=== PATIENT | female | born 1950 | race Caucasian/White ===

== ENCOUNTER 2017-06-05 08:00 | Outpatient (CLI) | payer MEDICARE | END 2017-06-05 08:01 | disposition home or self-care (01) | LOC: BICMAMMO 08:00 | PROVIDERS: ATTEND Family Medicine | DX: Z12.31 Encounter for screening mammogram for malignant neoplasm of breast (principal) | CPT/HCPCS: 77063; G0202; 77067 ==

== ENCOUNTER 2018-06-11 16:23 | Outpatient (CLI) | payer MEDICARE | END 2018-06-11 16:24 | disposition home or self-care (01) | LOC: BICMAMMO 16:23 | PROVIDERS: ATTEND Family Medicine | DX: Z12.31 Encounter for screening mammogram for malignant neoplasm of breast (principal); Z80.3 Family history of malignant neoplasm of breast | CPT/HCPCS: 77063; 77067 ==

== ENCOUNTER 2019-06-22 12:45 | Outpatient (CLI) | payer MEDICARE ==
--- NOTE | 2019-06-22 13:33 | MMO ---
Bilateral MAMMO Bilat Screen DDI+ROSELINE. CLINICAL HISTORY: Patient is 69 years old and is seen for screening. The patient has the following family history of breast cancer: niece, malignant (generic), X2. The patient has no personal history of cancer. The patient has a history of left Excisional Biopsy in 2008 - benign. VIEWS: The views performed were: bilateral craniocaudal with tomosynthesis and bilateral mediolateral oblique with tomosynthesis. FILMS COMPARED: The present examination has been compared to prior imaging studies performed at [facility] on 11/16/2014, 01/02/2016, 06/05/2017 and 06/11/2018. This study has been interpreted with the assistance of computer-aided detection. MAMMOGRAM FINDINGS: There are scattered fibroglandular densities. There are no suspicious masses, suspicious calcifications, or new areas of architectural distortion. IMPRESSION: THERE IS NO MAMMOGRAPHIC EVIDENCE OF MALIGNANCY. A ROUTINE FOLLOW-UP MAMMOGRAM IN 1 YEAR IS RECOMMENDED. THE RESULTS OF THIS EXAM WERE SENT TO THE PATIENT. ACR BI-RADS Category 1 - Negative MAMMOGRAPHY NOTE: 1. A negative mammogram report should not delay a biopsy if a dominant of clinically suspicious mass is present. 2. Approximately 10% to 15% of breast cancers are not detected by mammography. 3. Adenosis and dense breasts may obscure an underlying neoplasm. Reported by: DONNA LIVE MD Electonically Signed: [id number]
== END 2019-06-22 12:46 | disposition home or self-care (01) ==
LOC: BICMAMMO 12:45
PROVIDERS: ATTEND Family Medicine
DX: Z12.31 Encounter for screening mammogram for malignant neoplasm of breast (principal); Z80.3 Family history of malignant neoplasm of breast; Z91.89 Other specified personal risk factors, not elsewhere classified
CPT/HCPCS: 77063; 77067

== ENCOUNTER 2019-08-21 15:01 | Inpatient (IN) | payer MEDICARE ==
[2019-08-21] MEDS ORDERED: Diltiazem 125 MG/25 ML ONE (15:26)
[2019-08-21 15:31] LABS: #Eosinphils 0.1 thou/uL (0.0-0.7); #Lymphocytes 4.8 thou/uL (1.20-3.40); #Monocytes 0.9 thou/uL (0.11-0.59); %Basophils 0.3 % (0.0-1.0); %Eosinophils 0.4 % (0.0-10.0); %Lymphocytes 32.1 % (21.0-51.0); %Monocytes 6.2 % (0.0-10.0); Hemoglobin 13.9 g/dL (12.0-16.0); Mean Corpuscular HGB CONC 32.6 g/dL (32.0-36.0); Mean Corpuscular Hemoglobin 27.6 pg (27.0-31.0); Mean Corpuscular Volume 84.8 fL (78.0-98.0); Mean Platelet Volume 8.4 fL (7.4-10.4); Platelet Count 292 thou/uL (130-400); RBC Distribution Width 13.3 % (11.5-14.5); Red Blood Cell (RBC) Count 5.02 mill/uL (4.20-5.40); White Blood Cell (WBC) Count 14.8 thou/uL (4.8-10.8)
--- NOTE | 2019-08-21 15:38 | RAD ---
Chest one view HISTORY: Cough. Pneumonia. COMPARISON: 09/29/2015. FINDINGS: Cardiac silhouette and pulmonary vasculature are unremarkable. Mediastinum is midline with aortic calcification. No confluent airspace consolidation or evidence of pneumothorax. IMPRESSION: Atherosclerosis. No active cardiopulmonary abnormalities are otherwise demonstrated.
[2019-08-21 15:44] LABS: Prothrombin Time 12.7 SEC (12.0-14.7)
[2019-08-21 15:46] LABS: D-Dimer Test 0.38 *mcg/mL (0.27-0.43)
[2019-08-21 15:58] LABS: ALT (SGPT) 17 U/L (8-55); AST (SGOT) 16 U/L (5-34); Albumin 4.6 g/dL (3.4-4.8); Alkaline Phosphatase 56 U/L (40-110); Anion Gap 16 mmol/L (10-20); BUN (Urea Nitrogen) 24 mg/dL (9.8-20.1); Bilirubin, Total 0.4 mg/dL (0.2-1.2); CK (CPK) 60 U/L (29-168); Calc. Creatinine Clearance 0 mL/min (70-130); Calcium 10.3 mg/dL (7.8-10.44); Carbon Dioxide 24 mmol/L (23-31); Chloride 102 mmol/L (98-107); Estimated GFR-MDRD 67; Globulin 2.8 g/dL (2.4-3.5); Glucose 100 mg/dL (83-110); Potassium 3.5 mmol/L (3.5-5.1); Protein, Total 7.4 g/dL (6.0-8.3); Sodium 138 mmol/L (136-145)
[2019-08-21] MEDS ORDERED: Diltiazem 125 MG in Sodium Chloride 0.9% 100 ML IVPB SCH (16:15)
[2019-08-21 16:20] LABS: CKMB 1.2 ng/mL (0-6.6)
[2019-08-21] MEDS ORDERED: Enoxaparin Sodium 100 MG/ML SYRINGE ONE (17:26)
[2019-08-21] MEDS ORDERED: Aspirin Chewable 81 MG TAB ONE (17:26)
[2019-08-21 18:08] LABS: Bilirubin Negative (Negative); Blood, Urine Trace (Negative); Glucose, Urine (Dipstick) Negative (Negative); Leukocyte Negative (Negative); Nitrite Negative (Negative); Protein, Urine (Dipstick) Negative (Neg-Trace); Urobilinogen 0.2 mg/dL (Less than 2)
[2019-08-21 18:09] LABS: Clarity Clear (Clear)
[2019-08-21 18:10] LABS: Squamous Epithelial 0-3 HPF (0-3)
[2019-08-21 18:11] LABS: Bacteria/HPF 1+ HPF (None Seen)
[2019-08-21] MEDS ORDERED: Acetaminophen 325 MG TAB PO PRN (19:41)
[2019-08-21 19:45] LABS: Troponin I 0.026 ng/mL (< 0.028)
[2019-08-21 20:50] VITALS: BMI 38.6
[2019-08-21 22:56] LABS: Troponin I 0.027 ng/mL (< 0.028)
--- NOTE | 2019-08-22 00:59 | HP ---
CHIEF COMPLAINT: Generalized fatigue and low blood pressure. HISTORY OF PRESENT ILLNESS: This patient is a 69-year-old female, who has no prior cardiac history. She states about 3 weeks ago she started experiencing some dull headaches, which were not too bother some. Then on Saturday 5 days ago, she started feeling some generalized weakness and fatiguing very quickly with minimal exertion. She stated that she could tell when she was lying down that her heart might be a bit abnormal. She was also monitoring her blood pressure with a blood pressure cuff that told her heart rate was getting high and her blood pressure was running down to the 110 range. Therefore, she did not take her blood pressure medicine over the last couple of days. Today, she presented to the Emergency Department where she was found to be in atrial fibrillation with rapid ventricular rate. She denied chest pain, lightheadedness, or palpitations. She has not subjectively felt short of breath, but her daughter felt like she appeared to be a bit more dyspneic on exertion yesterday. REVIEW OF SYSTEMS: Normal sleep, appetite, bowel and bladder habits. She has some chronic knee pain. Otherwise, all systems reviewed, all other systems negative except for those things mentioned in HPI. PAST MEDICAL HISTORY: Hypertension, hyperlipidemia, overactive bladder. PAST SURGICAL HISTORY: x4, hysterectomy, total right knee replacement, cataractectomy. FAMILY HISTORY: Father had heart problems. Mother had atrial fibrillation. SOCIAL HISTORY: The patient quit smoking over 10 years ago. Very rarely drinks alcohol. No drugs. She is . She is full code and her or her son would be her surrogate decision makers should that become necessary. PHYSICAL EXAMINATION: VITAL SIGNS: Blood pressure is 146/71, pulse at the time of my exam was round 110, down to the 90s. Peak in the emergency department was 162, respirations 16, temperature 98.1, O2 saturation 98% on room air. GENERAL APPEARANCE: Morbidly obese age-appropriate female. She is awake, alert, very pleasant, cooperative. HEENT: DAMON. Extraocular lens implants are visible. She has no OP lesions. NECK: Supple and symmetric. HEART: Irregularly irregular without murmurs, tachycardic. LUNGS: Clear to auscultation bilaterally with good chest wall expansion and air exchange. ABDOMEN: Soft, nontender, and nondistended. Positive bowel sounds. No masses. No organomegaly. EXTREMITIES: No cyanosis, clubbing, or edema. Pulses are slightly diminished, but present. PSYCHIATRIC: Normal affect and behavior. NEUROLOGIC: No focal deficits. LABORATORY DATA: White count 14.8, hemoglobin 13.9. INR is 1.0, PT 12.7. D-dimer 0.38. Sodium 138, potassium 3.5, chloride 102, CO2 24, BUN 24, creatinine 0.84, glucose 100, calcium 10.3, mag 2.2. LFTs normal. Troponin 0.032, subsequent 0.026. TSH 1.67. Urinalysis unremarkable. IMAGING: Chest x-ray shows some atherosclerosis, otherwise unremarkable. EKG, atrial fibrillation with RVR at 157 beats per minute. IMPRESSION AND PLAN: 1. Atrial fibrillation with rapid ventricular response. The patient has received diltiazem in the emergency department, started on drip. She is at 15 an hour. Because it is requiring some changes, the patient was admitted to the [facility]. Heart rate seems to be improving somewhat with that. She did receive a dose of Lovenox in the emergency department. We will continue with Lovenox for now just to ensure that she will have some stability and not require SARAH and cardioversion. If she appears stable by tomorrow, may be able to convert over to oral anticoagulant. We will obtain echocardiogram. Consult Cardiology. 2. Hypertension. Continue with her usual home medications. 3. Mild leukocytosis. I do not suspect infectious etiology. Job ID: [id number]
[2019-08-22 03:45] LABS: #Basophils 0.1 thou/uL (0.0-0.2); #Eosinphils 0.1 thou/uL (0.0-0.7); #Lymphocytes 3.9 thou/uL (1.20-3.40); #Monocytes 0.7 thou/uL (0.11-0.59); %Basophils 0.6 % (0.0-1.0); %Lymphocytes 39.8 % (21.0-51.0); %Monocytes 7.3 % (0.0-10.0); %Neutrophils 51.4 % (42.0-75.0); Hemoglobin 12.4 g/dL (12.0-16.0); Mean Corpuscular HGB CONC 32.9 g/dL (32.0-36.0); Mean Corpuscular Volume 85.1 fL (78.0-98.0); Mean Platelet Volume 8.4 fL (7.4-10.4); Platelet Count 240 thou/uL (130-400); RBC Distribution Width 13.3 % (11.5-14.5); Red Blood Cell (RBC) Count 4.41 mill/uL (4.20-5.40); White Blood Cell (WBC) Count 9.8 thou/uL (4.8-10.8)
[2019-08-22 04:04] LABS: Anion Gap 12 mmol/L (10-20); BUN (Urea Nitrogen) 18 mg/dL (9.8-20.1); Calc. Creatinine Clearance 126 mL/min (70-130); Calcium 9.3 mg/dL (7.8-10.44); Carbon Dioxide 24 mmol/L (23-31); Chloride 104 mmol/L (98-107); Estimated GFR-MDRD 85; Glucose 95 mg/dL (83-110); Sodium 137 mmol/L (136-145)
[2019-08-22] MEDS: Enoxaparin Sodium 120 MG/0.8 ML SYRINGE SC SCH ×2 (08:14→20:35)
[2019-08-22] MEDS ORDERED: Potassium Chloride 40 MEQ in Sodium Chloride 0.9% 250 ML 250 ML IVPB SCH (09:00)
[2019-08-22] MEDS: Potassium Chloride 40 MEQ in Sodium Chloride 0.9% 250 ML 250 ML IVPB SCH ×2 (12:05→18:03)
--- NOTE | 2019-08-22 12:46 | PDOC.HOSPP ---
- Subjective Encounter Date: 08/22/19 Encounter Time: 11:30 Subjective: no overnight events. This morning, laying comfortably in bed and has no complaints. Rate better controlled on cardizem drip. - Objective Vital Signs & Weight: Vital Signs (12 hours) Temp Pulse Ox 08/22/19 12:00 98.0 F 08/22/19 08:00 100 08/22/19 07:26 98.7 F 08/22/19 03:48 97.6 F Weight Weight 232 lb 1.6 oz Most Recent Monitor Data Heart Rate from ECG 96 NIBP 144/62 NIBP BP-Mean 89 Respiration from ECG 19 SpO2 96 I&O: 08/21/19 08/22/19 08/23/19 06:59 06:59 06:59 Intake Total 200 Output Total 150 Balance 50 Result Diagrams: 08/22/19 03:20 08/22/19 03:20 Hospitalist ROS - Review of Systems Constitutional: denies: fever, chills, sweats, weakness, malaise, other Respiratory: denies: cough, dry, shortness of breath, hemoptysis, SOB with excertion, pleuritic pain, sputum, wheezing, other Cardiovascular: denies: chest pain, palpitations, orthopnea, paroxysmal noc. dyspnea, edema, light headedness, other Gastrointestinal: denies: nausea, vomiting, abdominal pain, diarrhea, constipation, melena, hematochezia, other Genitourinary: denies: dysuria, frequency, incontinence, hematuria, retention, other - Medication Medications: Active Medications Generic Name Dose Route Start Last Admin Trade Name Freq PRN Reason Stop Dose Admin Enoxaparin Sodium 110 mg 08/22/19 09:00 08/22/19 08:14 Lovenox SC 110 mg 0900,2100 KAMILA Administration Diltiazem HCl 125 mg/ Sodium 125 mls @ 5 mls/hr 08/21/19 16:15 08/22/19 09:41 Chloride IVPB 125 mls INF KAMILA Administration 5 MG/HR Potassium Chloride 40 meq/ 270 mls @ 67.5 mls/hr 08/22/19 13:00 08/22/19 12: 05 Sodium Chloride IVPB 08/22/19 20:59 Not Given Q4HR KAMILA - Exam General Appearance: NAD, awake alert Neck: no JVD Heart: irregular Heart - other findings: HR 90s-100s; on sitting up for lung exam, HR 120s Respiratory: CTAB, no wheezes, no ronchi Respiratory - other findings: mild inspiratory rales b/l lower portillo, breathing and satting well on RA Gastrointestinal: soft, non-tender, non-distended, normal bowel sounds Extremities: no edema Psychiatric: normal affect, normal behavior, A&O x 3 Hosp A/P - Plan #atrial fibrillation w/ RVR -currently asymptomatic, breathing and satting well on RA -HR 100s on 5mg/hr cardizem drip; pending echo and cardiology recommendations -no contraindication to anticoagulation; was on warfarin in the past for short duration s/p total knee replacement; currently on Lovenox, will transition to DOACs pending cardiology recs #hypertension -currently well controlled -will adjust as necessary after patient is transitioned to oral rate control -goal BP <140/90 Full code DVT PPx: on anticoag for afib GI PPx: no indication
--- NOTE | 2019-08-22 13:40 | CON ---
DATE OF CONSULTATION: 08/22/2019 REASON FOR CONSULTATION: Atrial fibrillation. HISTORY OF PRESENT ILLNESS: Ms. Cooper is a very pleasant 69-year-old woman, who recently was in her normal state of health until Saturday when she began feeling weak. No shortness of breath, chest pain, or pressure. She also states she had a heart fluttering at present. No nausea, vomiting, or other associated symptoms. No syncope or presyncope. No previous history of atrial fibrillation. When she was seen and evaluated in the emergency room, she was found to be in AFib with RVR. She was placed on IV Cardizem. She is now resting comfortably. Heart rate continues to be elevated. PAST MEDICAL HISTORY: Hyperlipidemia, hypertension, , hysterectomy, knee replacement, cataract surgery. SOCIAL HISTORY: No current tobacco use. Rare alcohol use. Currently, . REVIEW OF SYSTEMS: A 10-point review of systems is reviewed and as above, otherwise negative. PHYSICAL EXAMINATION: GENERAL: Patient is a pleasant woman, who is in no acute distress. The patient appears her stated age. VITAL SIGNS: Blood pressure 144/62, pulse 80, temperature 96, respirations 20. NEUROLOGIC: The patient is alert and oriented x3 with no focal neurologic deficits. HEENT: Sclerae without icterus. Mouth has moist mucous membranes with normal pallor. NECK: No JVD. Carotid upstroke brisk. No bruits bilaterally. LUNGS: Clear to auscultation with unlabored respirations. BACK: No scoliosis or kyphosis. CARDIAC: Irregularly irregular. ABDOMEN: Soft, nontender, nondistended. No peritoneal signs present. No hepatosplenomegaly. No abnormal striae. EXTREMITIES: 2+ femoral and 2+ dorsalis pedis pulses. No cyanosis, clubbing, or edema. SKIN: No gross abnormalities. LABORATORY DATA: CK and troponin negative. Potassium 3.0, otherwise within normal limits. Hemoglobin was 12.4. IMPRESSION: 1. New-onset atrial fibrillation. 2. Hypokalemia. RECOMMENDATIONS: 1. Supplement IV Cardizem with p.o. Cardizem. 2. Continue Lovenox 1 mg/kg subcutaneous q.12. 3. Add Eliquis 5 mg one p.o. b.i.d. when close to discharge. 4. Review echo. 5. Once the patient's rate is controlled, will be okay from my standpoint to discharge home with close outpatient followup. If she is not able to have a rate control with medical therapy, we then recommend a SARAH with cardioversion. Job ID: [id number]
--- NOTE | 2019-08-22 18:43 | CON ---
DATE OF CONSULTATION: 08/22/2019 HISTORY OF PRESENT ILLNESS: Ino Cooper is a 69-year-old female, who presented last night with complaints of weakness, easy fatigability, and shortness of breath when she moves around. She also had subjective palpitations. She had rapid atrial fibrillation on admission. She says she is feeling 100% better. Her rate is now controlled. PAST MEDICAL HISTORY: Remarkable for hypertension, lipid disorder, four C- sections, hysterectomy, knee replacement, and cataract surgery. FAMILY HISTORY: Positive for vascular disease. Her mom had atrial fibrillation , at 87 years of age, not from the atrial fibrillation. SOCIAL HISTORY: She is a former smoker. She does not drink. REVIEW OF SYSTEMS: Ten-point otherwise is negative. She says she is able to lay flat in bed now without shortness of breath. PHYSICAL EXAMINATION: VITAL SIGNS: She is afebrile, heart rate 102, blood pressure 126/75, and respiratory rates in the 20s. HEENT: Pupils are equal. Sclerae are anicteric. NECK: Supple. No lymphadenopathy. LUNGS: Clear. HEART: Irregular. S1 and S2 are normal. ABDOMEN: Soft and nontender. EXTREMITIES: Without clubbing, cyanosis, or edema. NEURO: Grossly nonfocal. LABORATORY DATA: White count 9.8, hemoglobin 12.4, and platelets 240. Electrolytes are normal except for potassium of 3 and creatinine was 0.68. Coags were normal. Urinalysis is unremarkable. IMPRESSION AND PLAN: Rapid atrial fibrillation with symptoms predominantly related to that. Now, she is rate control. She is feeling much better. Echocardiogram has been done showing normal systolic function. We will follow while she is in intermediate care. She looks stable enough to move out to a telemetry bed. TIME SPENT: A 50-minute consult 50% of the time was spent on the unit coordinating care. Job ID: [id number] [facility]
[2019-08-22] MEDS: diphenhydrAMINE 25 MG CAP PO PRN (20:35)
[2019-08-23 04:56] LABS: Magnesium 2.1 mg/dL (1.6-2.6); Potassium 3.6 mmol/L (3.5-5.1)
[2019-08-23] MEDS: Enoxaparin Sodium 120 MG/0.8 ML SYRINGE SC SCH (07:48)
--- NOTE | 2019-08-23 08:00 | PDOC.CPN ---
- Subjective Date: 08/23/19 Time: 10:28 Interval history: Overall feels better but HR continues to erratic with little exertion - Objective Allergies/Adverse Reactions: Allergies Allergy/AdvReac Type Severity Reaction Status Date / Time No Known Allergies Allergy Unverified 08/21/19 16:03 Visit Medications: Current Medications Acetaminophen (Tylenol) 650 mg PO Q4H PRN PRN Reason: Headache/Fever/Mild Pain (1-3) Diltiazem HCl (Cardizem) 90 mg PO Q8H KAMILA Last Admin: 08/23/19 01:07 Dose: 90 mg Diphenhydramine HCl (Benadryl) 25 mg PO Q4H PRN PRN Reason: Itching Last Admin: 08/22/19 20:35 Dose: 25 mg Enoxaparin Sodium (Lovenox) 110 mg SC 0900,2100 [facility] Last Admin: 08/23/19 07:48 Dose: 110 mg Diltiazem HCl 125 mg/ Sodium (Chloride) 125 mls @ 5 mls/hr IVPB INF KAMILA Stop: 08/23/19 10:00 Last Admin: 08/22/19 09:41 Dose: 125 mls Sodium Chloride (Flush - Normal Saline) 10 ml IVF PRN PRN PRN Reason: Saline Flush Vital Signs & Weight: Vital Signs Temp Pulse Ox 08/23/19 07:21 97.4 F L 08/23/19 04:00 97.8 F 08/23/19 00:00 97.7 F 08/22/19 23:00 97 08/22/19 20:00 99 Weight 232 lb 1.6 oz - Physical Exam General: alert & oriented x3 Neck: no masses, no bruit Cardiac: no murmur, irregularly regular Lungs: normal exam Neuro: grossly intact Abdomen: unremarkable - Labs Result Diagrams: 08/22/19 03:20 08/23/19 03:55 Troponin/CKMB CK-MB (CK-2) 1.2 ng/mL (0-6.6) 08/21/19 15:19 Troponin I 0.027 ng/mL (< 0.028) 08/21/19 22:17 - Assessment/Plan Assessment/Plan: New onset afib On IV CCB, PO CCB Increase PO and DC IV On ACT Echo with normal EF Given difficult with rate control, recommend CV and SARAH Risks of procedure discussed including but not limited to:CVA, failed CV, need for repeat CV, damage to teeth mouth throat and esophagus requiring surgery. Pt agrees to proceed.
[2019-08-23] MEDS: Hydrochlorothiazide 25 MG TAB PO SCH (08:33)
--- NOTE | 2019-08-23 08:39 | PDOC.HOSPP ---
- Subjective Encounter Date: 08/23/19 Encounter Time: 08:00 Subjective: overnight, cardizem drip held and transitioned to PO. HR in 100-110s unless exerts herself, during which 130s. This morning, lying comfortably in bed and has no complaints. - Objective Vital Signs & Weight: Vital Signs (12 hours) Temp Pulse Ox 08/23/19 07:21 97.4 F L 08/23/19 04:00 97.8 F 08/23/19 00:00 97.7 F 08/22/19 23:00 97 Weight Weight 232 lb 1.6 oz Most Recent Monitor Data Heart Rate from ECG 100 NIBP 138/66 NIBP BP-Mean 90 Respiration from ECG 18 SpO2 96 I&O: 08/22/19 08/23/19 08/24/19 06:59 06:59 06:59 Intake Total 200 1470 Output Total 150 125 Balance 50 1345 Result Diagrams: 08/22/19 03:20 08/23/19 03:55 Hospitalist ROS - Review of Systems Constitutional: denies: fever, chills, sweats, weakness, malaise, other Respiratory: denies: cough, dry, shortness of breath, hemoptysis, SOB with excertion, pleuritic pain, sputum, wheezing, other Cardiovascular: denies: chest pain, palpitations, orthopnea, paroxysmal noc. dyspnea, edema, light headedness, other Gastrointestinal: denies: nausea, vomiting, abdominal pain, diarrhea, constipation, melena, hematochezia, other Genitourinary: denies: dysuria, frequency, incontinence, hematuria, retention, other - Medication Medications: Active Medications Generic Name Dose Route Start Last Admin Trade Name Freq PRN Reason Stop Dose Admin Diltiazem HCl 90 mg 08/22/19 18:00 08/23/19 08:33 Cardizem PO 90 mg Q8H KAMILA Administration Diphenhydramine HCl 25 mg 08/22/19 20:24 08/22/19 20:35 Benadryl PO 25 mg Q4H PRN Administration Itching Enoxaparin Sodium 110 mg 08/22/19 09:00 08/23/19 07:48 Lovenox SC 110 mg 0900,2100 KAMILA Administration Hydrochlorothiazide 25 mg 08/23/19 09:00 08/23/19 08:33 Hydrochlorothiazide PO 25 mg DAILY KAMILA Administration Diltiazem HCl 125 mg/ Sodium 125 mls @ 5 mls/hr 08/21/19 16:15 08/22/19 09:41 Chloride IVPB 08/23/19 10:00 125 mls INF KAMILA Administration 5 MG/HR - Exam General Appearance: NAD, awake alert Heart: irregular Heart - other findings: rate in 120s right after bowel movement Respiratory: CTAB, no wheezes, no rales, no ronchi Gastrointestinal: soft, non-tender, non-distended, normal bowel sounds Extremities: no edema Psychiatric: normal affect, normal behavior, A&O x 3 Hosp A/P - Plan #atrial fibrillation w/ RVR -currently asymptomatic, breathing and satting well on RA -HR 100s on cardizem PO; on exertion HR 120s-130s -continue cardizem PO; adjust as per cardiology recs -stopped lovenox, started eliquis 5mg PO bid #hypertension -currently well controlled -continue current management Full code DVT PPx: on anticoag for afib GI PPx: no indication Transfered to Telemetry. Likely DC 08/23
[2019-08-23] MEDS ORDERED: Atorvastatin Calcium 10 MG TAB PO SCH ×2 (09:00→21:00)
[2019-08-23] MEDS: Apixaban 5 MG TAB PO SCH ×2 (09:11→21:13)
[2019-08-23] MEDS ORDERED: Digoxin 0.5 MG/2 ML AMP SLOW IVP SCH (09:45)
[2019-08-23] MEDS: diphenhydrAMINE 25 MG CAP PO PRN (10:29)
[2019-08-23] MEDS: Flecainide 50 MG TAB PO SCH (21:12)
[2019-08-24 04:43] LABS: Potassium 3.4 mmol/L (3.5-5.1)
[2019-08-24] MEDS ORDERED: Potassium Chloride 20 MEQ TAB PO SCH (07:00)
[2019-08-24] MEDS ORDERED: PROPOFOL 20 ML ONE (10:01)
[2019-08-24] MEDS ORDERED: Fentanyl 100 MCG/2 ML VIAL ONE (10:01)
--- NOTE | 2019-08-24 10:53 | OP ---
DATE OF PROCEDURE: 08/24/2019 PREPROCEDURE DIAGNOSIS: Atrial fibrillation. POSTPROCEDURE DIAGNOSIS: Sinus rhythm. PROCEDURE: Synchronized cardioversion. DESCRIPTION OF PROCEDURE: The patient was consented for the procedure. I discussed the procedure in full detail with Ms. Cooper. Risks include, but not limited to the following: Stroke, need for temporary pacemaker, burning of skin, failed cardioversion, or need for repeat cardioversion. All questions were answered. Given the above, the patient agreed to proceed with above procedure. Conscious sedation was performed with propofol. This occurred after the SARAH. Cardioversion performed x1 at 150 joules in a synchronized fashion. IMPRESSION: Successful synchronized cardioversion. Job ID: [id number]
--- NOTE | 2019-08-24 10:54 | OP ---
DATE OF PROCEDURE: 08/24/2019 PREPROCEDURE DIAGNOSIS: Atrial fibrillation. PROCEDURE PERFORMED: Transesophageal echocardiography. DESCRIPTION OF PROCEDURE: The patient was consented for the procedure. I discussed procedure in full detail with Arvind Allison. Risks include, but not limited to the following: Damage to teeth, mouth, back of throat, damage to esophagus, as well as reaction to medication. All questions were answered. Given the above, the patient agreed to proceed with the procedure. Conscious sedation was performed with propofol. The probe passed easily into esophagus. FINDINGS: Left atrial appendage well visualized. No thrombus present. Velocities are greater than 50 cm/second. Overall LVEF estimated at 55%. IMPRESSION: 1. No thrombus present within the left atrial appendage. 2. Velocities greater than 50 cm/sec with the left atrial appendage. 3. LVEF 55%. Job ID: [id number]
[2019-08-24] MEDS: Flecainide 50 MG TAB PO SCH (11:29)
[2019-08-24] MEDS: Apixaban 5 MG TAB PO SCH (11:30)
[2019-08-24] MEDS: Hydrochlorothiazide 25 MG TAB PO SCH (11:31)
[2019-08-24 11:46] VITALS: TEMP 98.2
--- NOTE | 2019-08-25 14:08 | DIS ---
DATE OF ADMISSION: 08/21/2019 DATE OF DISCHARGE: 08/24/2019 HOSPITAL COURSE: Ms. Cooper is a 69-year-old female with medical history of hypertension, who presented for generalized weakness. She was found to be in atrial fibrillation with RVR and attempts to control the rate were unsuccessful. The patient underwent SARAH with cardioversion after which she remained in sinus rhythm. Per Cardiology, the patient was supplemented with anticoagulation, flecainide, diltiazem, losartan, and was continued on atorvastatin and oxybutynin. Metoprolol and hydrochlorothiazide were discontinued. The patient was hemodynamically stable and in sinus rhythm on the day of discharge. PHYSICAL EXAMINATION: VITAL SIGNS: Unremarkable. GENERAL: She was alert and oriented x3. No apparent distress. CARDIAC: Regular rate and rhythm. No gallops or rubs. LUNGS: Clear to auscultation bilaterally. No rales, wheezing, or rhonchi. ABDOMEN: Nondistended and nontender. Normal bowel sounds. EXTREMITIES: Strength is 5/5 throughout upper and lower extremities. PSYCHIATRIC: Proper mood and affect. Alert and oriented x3. ASSESSMENT AND PLAN: 1. Ms. Cooper is a 69-year-old female, who presented with new onset atrial fibrillation with rapid ventricular rate. 2. Medical management to control the rate was unsuccessful, so the patient underwent SARAH with cardioversion after which the patient was in sinus rhythm. The patient's symptoms have resolved and she was ambulating freely with no shortness of breath or presyncope. 3. The patient was started on flecainide, diltiazem, and apixaban per Cardiology recommendations, and losartan. We placed hydrochlorothiazide due to persistent hypokalemia during inpatient stay. 4. The patient was discharged home with followup appointments with her primary care physician, as well as Cardiology. Job ID: [id number]
--- NOTE | 2019-08-25 23:44 | PQF ---
GLORIA POLO RICARDO MD [id number] CLINICAL DOCUMENTATION CLARIFICATION FORM: POST DISCHARGE Addendum to original discharge summary date: ____ Late entry note date: __ DATE: ATTN:JACE KERR MD Please exercise your independent, professional judgment in responding to the clarification form. Clinical indicators are provided on the bottom of this form for your review Please check appropriate box(s): AMI TYPE: [ ] Acute Coronary Syndrome (ACS) without Acute ID meaning Unstable Angina [ ] NSTEMI (ID type I) [ ] NSTEMI due to Demand Ischemia (AMI Type II) [ ] Demand Ischemia without ID [ ] STEMI (please also specify site and arterysee below) If STEMI, SITE:[ ] Anterior [ ] Apical [ ] Lateral [ ] Inferior [ ] Posterior [ ] Q Wave [ ] Septal [ ] Unable to Determine SPECIFIC ARTERY (Based on site) [ ] Left Main Coronary[ ] Diagonal [ ] Left Anterior Descending[ ] Oblique Marginal [ ] Right Coronary Artery[ ] Unable to Determine [ ] Left Circumflex [ ] Other diagnosis [ ] Unable to determine In addition, please specify: Present on Admission (POA): [ ] Yes [ ] No [ ] Unable to determine CLINICAL INDICATORS - SIGNS / SYMPTOMS / LABS Cardiovascular exam included findings of rate tachycardia,rhythm irregularly irregular-Documented in ED on 08/20 by Tim Santos MD 12 lead EKG shows , atrial fibrillation with rapid ventricular response, Rate: 157, ST marked ST abnormality, possible lateral subendocardial injury, Inferior infarct , age undetermined, anterior infarct , age undetermined , no stemi- Documented in ED on 08/20 by Tim Santos MD New onset AFIB-Documented in ED on 08/20 by Tim Santos MD Troponin mildly elevated -Documented in ED on 08/20 by Tim Santos MD Troponin-0.032-Documented in H&P on 08/20 by Sixto Patricio MD r RISKS: HTN-Documented in H&P on 08/20 by Sixto Patricio MD New onset AFIB-Documented in ED on 08/20 by Tim Santos MD TREATMENTS: Patient given ASA-Documented in ED on 08/20 by Tim Santos MD Synchronized cardioversion -Documented in OP note on 08/23 by Jace Kerr MD SARAH-Documented in OP note on 08/23 by Jace Kerr MD Aspirin chewable 81 mg -Documented in Medication snapshot [employer] (This form is maintained as a part of the permanent medical record) 2014 [employer], [employer]. All Rights Reserved [email or web address]
--- NOTE | 2019-08-29 13:42 | EKG ---
Test Reason : Blood Pressure : / mmHG Vent. Rate : 157 BPM Atrial Rate : 340 BPM P-R Int : 000 ms QRS Dur : 084 ms QT Int : 310 ms P-R-T Axes : 000 004 182 degrees QTc Int : 501 ms Atrial fibrillation with rapid ventricular response Inferior infarct , age undetermined Anterior infarct , age undetermined Marked ST abnormality, possible lateral subendocardial injury Abnormal ECG Confirmed by GABRIELLA PIKE M.D. ([id number]), editorial intern HIRAM STAFFORD ([id number]) on 08/29/2019 1:42:05 PM Referred By: Confirmed By:GABRIELLA PIKE M.D.
== END 2019-08-24 15:50 | disposition home or self-care (01) | DRG 310 ==
LOC: ERS 15:01 → IMCU/EMU 18:49
PROVIDERS: ADMIT Internal Medicine; ATTEND Internal Medicine
PROC: 5A2204Z Restoration of Cardiac Rhythm, Single (ICD-10-PCS; principal; 2019-08-24)
PROC: B24BZZ4 Ultrasonography of Heart with Aorta, Transesophageal (ICD-10-PCS; 2019-08-24)
DX: I48.91 Unspecified atrial fibrillation (principal); E78.5 Hyperlipidemia, unspecified; I10 Essential (primary) hypertension; Z90.49 Acquired absence of other specified parts of digestive tract; Z96.651 Presence of right artificial knee joint; Z98.49 Cataract extraction status, unspecified eye; Z87.891 Personal history of nicotine dependence; D72.829 Elevated white blood cell count, unspecified; E87.6 Hypokalemia; I08.1 Rheumatic disorders of both mitral and tricuspid valves
CPT/HCPCS: 36415; 71045; 80048; 80053; 81003; 81015; 82550; 82553; 83735; 84132; 84443; 84484; 85025; 85379; 85610; 92960; 93005; 93306; 93312; 96365; 96366; 96372; 96376; 99214; G0463; J1160; J1650; J2704; J3010; J3480; J3490; J7050; Q0163

== ENCOUNTER 2019-10-21 06:25 | Outpatient (CLI) | payer MEDICARE, OTHER ==
[2019-10-21 14:47] LABS: #Eosinphils 0.1 thou/uL (0.0-0.7); #Lymphocytes 2.6 thou/uL (1.20-3.40); #Monocytes 0.8 thou/uL (0.11-0.59); #Neutrophils 7.7 thou/uL (1.40-6.50); %Basophils 0.4 % (0.0-1.0); %Eosinophils 0.8 % (0.0-10.0); %Lymphocytes 23.2 % (21.0-51.0); %Monocytes 6.8 % (0.0-10.0); %Neutrophils 68.8 % (42.0-75.0); Hemoglobin 12.3 g/dL (12.0-16.0); Mean Corpuscular HGB CONC 31.7 g/dL (32.0-36.0); Mean Corpuscular Hemoglobin 27.4 pg (27.0-31.0); Mean Corpuscular Volume 86.5 fL (78.0-98.0); Mean Platelet Volume 8.6 fL (7.4-10.4); Platelet Count 262 thou/uL (130-400); RBC Distribution Width 13.8 % (11.5-14.5); Red Blood Cell (RBC) Count 4.48 mill/uL (4.20-5.40); White Blood Cell (WBC) Count 11.1 thou/uL (4.8-10.8)
[2019-10-21 15:05] LABS: Anion Gap 14 mmol/L (10-20); BUN (Urea Nitrogen) 19 mg/dL (9.8-20.1); Calc. Creatinine Clearance 0 mL/min (70-130); Calcium 9.5 mg/dL (7.8-10.44); Carbon Dioxide 22 mmol/L (23-31); Chloride 106 mmol/L (98-107); Estimated GFR-MDRD 75; Glucose 102 mg/dL (83-110); Potassium 3.7 mmol/L (3.5-5.1); Sodium 138 mmol/L (136-145)
[2019-10-21 17:17] LABS: SARS-CoV-2 MS2 Positive; SARS-CoV-2 N Gene Negative; SARS-CoV-2 S Gene Negative; SARS-CoV-2 orf1ab Negative
== END 2019-10-21 06:26 | disposition home or self-care (01) ==
LOC: LABBT 06:25
PROVIDERS: ATTEND Internal Medicine Cardiovascular Disease
DX: Z01.812 Encounter for preprocedural laboratory examination (principal); Z11.59 Encounter for screening for other viral diseases; I48.91 Unspecified atrial fibrillation
CPT/HCPCS: 80048; 85025; U0003; 87635

== ENCOUNTER 2019-10-23 05:55 | Day surgery (SDC) | payer MEDICARE ==
[2019-10-21 11:32] VITALS: BMI 39.9
[2019-10-23] MEDS ORDERED: PROPOFOL 20 ML ONE (07:27)
--- NOTE | 2019-10-23 13:47 | OP ---
DATE OF PROCEDURE: 10/23/2019 PREOPERATIVE DIAGNOSIS: Atrial fibrillation. POSTOPERATIVE DIAGNOSIS: Sinus rhythm. PROCEDURE PERFORMED: Successful synchronized cardioversion at 150 joules. COMPLICATIONS: None. DESCRIPTION OF PROCEDURE: The patient was consented for the procedure. Propofol was used for conscious sedation. Successful cardioversion performed x1 at 150 joules. Job ID: [id number]
== END 2019-10-23 09:02 | disposition home or self-care (01) ==
LOC: CCL 05:55
PROVIDERS: ATTEND Internal Medicine Cardiovascular Disease
PROC: 5A2204Z Restoration of Cardiac Rhythm, Single (ICD-10-PCS; principal; 2019-10-23)
DX: I48.91 Unspecified atrial fibrillation (principal); I10 Essential (primary) hypertension; E78.5 Hyperlipidemia, unspecified; N32.81 Overactive bladder; Z79.01 Long term (current) use of anticoagulants; Z79.899 Other long term (current) drug therapy; Z91.048 Other nonmedicinal substance allergy status; Z96.651 Presence of right artificial knee joint
CPT/HCPCS: 92960; 93005; 93010; J2704

== ENCOUNTER 2019-12-17 12:55 | Outpatient (CLI) | payer MEDICARE, OTHER ==
[2019-12-17 16:38] LABS: #Eosinphils 0.1 thou/uL (0.0-0.7); #Lymphocytes 2.8 thou/uL (1.20-3.40); #Monocytes 0.9 thou/uL (0.11-0.59); #Neutrophils 6.4 thou/uL (1.40-6.50); %Basophils 0.2 % (0.0-1.0); %Eosinophils 0.9 % (0.0-10.0); %Lymphocytes 27.5 % (21.0-51.0); %Monocytes 8.5 % (0.0-10.0); %Neutrophils 62.9 % (42.0-75.0); Hemoglobin 12.6 g/dL (12.0-16.0); Mean Corpuscular HGB CONC 32.3 g/dL (32.0-36.0); Mean Corpuscular Hemoglobin 27.1 pg (27.0-31.0); Mean Corpuscular Volume 83.9 fL (78.0-98.0); Mean Platelet Volume 8.4 fL (7.4-10.4); Platelet Count 248 thou/uL (130-400); RBC Distribution Width 14.6 % (11.5-14.5); Red Blood Cell (RBC) Count 4.65 mill/uL (4.20-5.40); White Blood Cell (WBC) Count 10.2 thou/uL (4.8-10.8)
[2019-12-17 16:50] LABS: Anion Gap 16 mmol/L (10-20); BUN (Urea Nitrogen) 16 mg/dL (9.8-20.1); Calc. Creatinine Clearance 0 mL/min (70-130); Calcium 9.4 mg/dL (7.8-10.44); Carbon Dioxide 22 mmol/L (23-31); Chloride 106 mmol/L (98-107); Estimated GFR-MDRD 79; Glucose 83 mg/dL (83-110); Potassium 3.7 mmol/L (3.5-5.1); Sodium 140 mmol/L (136-145)
[2019-12-18 12:55] LABS: SARS-CoV-2 MS2 Positive; SARS-CoV-2 N Gene Negative; SARS-CoV-2 S Gene Negative; SARS-CoV-2 orf1ab Negative
== END 2019-12-17 12:56 | disposition home or self-care (01) ==
LOC: LABBT 12:55
PROVIDERS: ATTEND Internal Medicine Cardiovascular Disease
DX: Z01.812 Encounter for preprocedural laboratory examination (principal); Z11.59 Encounter for screening for other viral diseases; I48.91 Unspecified atrial fibrillation
CPT/HCPCS: 80048; 85025; U0003; 87635

== ENCOUNTER 2019-12-29 10:33 | Outpatient (CLI) | payer MEDICARE, OTHER ==
[2019-12-30 14:24] LABS: SARS-CoV-2 MS2 Positive; SARS-CoV-2 N Gene Negative; SARS-CoV-2 S Gene Negative; SARS-CoV-2 orf1ab Negative
== END 2019-12-29 10:34 | disposition home or self-care (01) ==
LOC: LABBT 10:33
PROVIDERS: ATTEND Internal Medicine Cardiovascular Disease
DX: Z01.812 Encounter for preprocedural laboratory examination (principal); Z11.59 Encounter for screening for other viral diseases; I48.91 Unspecified atrial fibrillation
CPT/HCPCS: 87635; U0003

== ENCOUNTER → 2020-01-01 | Day surgery (SDC) | payer MEDICARE ==
[2019-12-31 14:48] VITALS: BMI 40.2
[~2020-01-01] MED LIST: PROPOFOL 20 ML ONE
[2020-01-01 08:11] LABS: #Basophils 0.1 thou/uL (0.0-0.2); #Eosinphils 0.1 thou/uL (0.0-0.7); #Lymphocytes 2.3 thou/uL (1.20-3.40); #Monocytes 0.6 thou/uL (0.11-0.59); #Neutrophils 7.5 thou/uL (1.40-6.50); %Basophils 0.6 % (0.0-1.0); %Eosinophils 1.1 % (0.0-10.0); %Lymphocytes 21.5 % (21.0-51.0); %Neutrophils 70.7 % (42.0-75.0); Hemoglobin 11.5 g/dL (12.0-16.0); Mean Corpuscular HGB CONC 30.7 g/dL (32.0-36.0); Mean Corpuscular Hemoglobin 25.5 pg (27.0-31.0); Mean Corpuscular Volume 83.1 fL (78.0-98.0); Mean Platelet Volume 8.3 fL (7.4-10.4); Platelet Count 285 thou/uL (130-400); RBC Distribution Width 14.5 % (11.5-14.5); White Blood Cell (WBC) Count 10.7 thou/uL (4.8-10.8)
[2020-01-01 08:18] LABS: INR-International Normal Ratio 1.3; PTT 31.7 sec (22.9-36.1); Prothrombin Time 15.7 sec (12.0-14.7)
[2020-01-01 08:25] LABS: Anion Gap 14 mmol/L (10-20); BUN (Urea Nitrogen) 20 mg/dL (9.8-20.1); Calc. Creatinine Clearance 87 mL/min (70-130); Calcium 9.1 mg/dL (7.8-10.44); Carbon Dioxide 23 mmol/L (23-31); Chloride 104 mmol/L (98-107); Estimated GFR-MDRD 53; Glucose 114 mg/dL (83-110); Potassium 4.2 mmol/L (3.5-5.1); Sodium 137 mmol/L (136-145)
--- NOTE | 2020-01-01 09:39 | OP ---
DATE OF PROCEDURE: 01/01/2020 PROCEDURE PERFORMED: Electrical cardioversion report. REASON FOR PROCEDURE: Ms. Cooper is a 69-year-old female with history of persistent atrial fibrillation who underwent pulmonary venous isolation procedure on 12/23/2019. She had early recurrence of atrial fibrillation and was restarted on flecainide. Now, she is after flecainide loading and she is here for a planned cardioversion. She has not stopped anticoagulation since ablation and was on it prior to that as well. DESCRIPTION OF PROCEDURE: The patient received propofol by Anesthesia specialist. After adequate level of sedation achieved, a synchronized 100 joule shock promptly converted the patient back to sinus rhythm. CONCLUSION: Successful cardioversion. PLAN: Continue with flecainide, can hold digoxin, and monitor for bradyarrhythmias. Also continue uninterrupted anticoagulation as well. Job ID: [id number]
--- NOTE | 2020-01-06 16:11 | EKG ---
Test Reason : PREOP CARDIOVERSION Blood Pressure : / mmHG Vent. Rate : 110 BPM Atrial Rate : 117 BPM P-R Int : 000 ms QRS Dur : 118 ms QT Int : 288 ms P-R-T Axes : 000 064 256 degrees QTc Int : 389 ms Atrial fibrillation with rapid ventricular response Cannot rule out Anterior infarct , age undetermined Abnormal ECG Confirmed by NORMA GRAJEDA M.D. ([id number] on 01/06/2020 4:10:41 PM Referred By: [facility] Confirmed By:NORMA GRAJEDA M.D.
--- NOTE | 2020-01-06 16:20 | EKG ---
Test Reason : POST CARDIOVERSION Blood Pressure : / mmHG Vent. Rate : 074 BPM Atrial Rate : 074 BPM P-R Int : 222 ms QRS Dur : 108 ms QT Int : 410 ms P-R-T Axes : 064 068 045 degrees QTc Int : 455 ms Sinus rhythm with 1st degree A-V block Cannot rule out Anterior infarct (cited on or before 01-JAN-2020) Abnormal ECG When compared with ECG of 01-JAN-2020 08:04 Confirmed by NORMA GRAJEDA M.D. ([id number]) on 01/06/2020 4:20:12 PM Referred By: [facility] Confirmed By:NORMA GRAJEDA M.D.
== END ==
LOC: SDC 06:53
PROVIDERS: ATTEND Internal Medicine Cardiovascular Disease
PROC: 5A2204Z Restoration of Cardiac Rhythm, Single (ICD-10-PCS; principal; 2020-01-01)
DX: I48.19 Other persistent atrial fibrillation (principal); Z79.01 Long term (current) use of anticoagulants; Z79.899 Other long term (current) drug therapy; Z91.048 Other nonmedicinal substance allergy status
CPT/HCPCS: 80048; 85025; 85610; 85730; 92960; 93005; 93010; J2704

== ENCOUNTER 2021-11-22 10:51 | Outpatient (CLI) | payer MEDICARE | END 2021-11-22 10:52 | disposition home or self-care (01) | LOC: BICMAMMO 10:51 | PROVIDERS: ATTEND Family Medicine | DX: Z12.31 Encounter for screening mammogram for malignant neoplasm of breast (principal); Z91.89 Other specified personal risk factors, not elsewhere classified; Z80.3 Family history of malignant neoplasm of breast | CPT/HCPCS: 77063; 77067 ==

== ENCOUNTER 2022-07-16 06:01 | Inpatient (IN) | payer MEDICARE ==
[2022-07-16] MEDS ORDERED: Aspirin Chewable 81 MG TAB ONE (06:44)
[2022-07-16 07:03] LABS: #Eosinphils 0.1 thou/uL (0.0-0.7); #Lymphocytes 2.1 thou/uL (1.20-3.40); #Monocytes 0.7 thou/uL (0.11-0.59); #Neutrophils 5.1 thou/uL (1.40-6.50); %Basophils 0.2 % (0.0-1.0); %Eosinophils 1.8 % (0.0-10.0); %Lymphocytes 26.1 % (21.0-51.0); %Neutrophils 63.9 % (42.0-75.0); Hemoglobin 11.8 g/dL (12.0-16.0); Mean Corpuscular HGB CONC 31.2 g/dL (32.0-36.0); Mean Corpuscular Hemoglobin 26.6 pg (27.0-31.0); Mean Corpuscular Volume 85.3 fl (78.0-98.0); Mean Platelet Volume 7.8 fL (7.4-10.4); Platelet Count 253 10x3/uL (130-400); RBC Distribution Width 13.3 % (11.5-14.5); Red Blood Cell (RBC) Count 4.43 mill/uL (4.20-5.40)
[2022-07-16 08:39] LABS: Bacteria/HPF 2+ HPF (None Seen); Bilirubin Negative (Negative); Blood, Urine Negative (Negative); Clarity Clear (Clear); Glucose, Urine (Dipstick) Normal (Negative); Ketone, Urine Negative (Negative); Leukocyte 250 Leu/uL (Negative); Nitrite Negative (Negative); Protein, Urine (Dipstick) Negative (Neg-Trace); Specific Gravity, Urine 1.018 (1.002-1.036); Squamous Epithelial 0-3 HPF (0-3); Urobilinogen Normal mg/dL (Less than 2); WBC/HPF 21-50 HPF (0-3)
[2022-07-16] MEDS ORDERED: Metoprolol Tartrate 5 MG/5 ML VIAL ONE (08:58)
[2022-07-16 09:04] LABS: SARS-CoV-2 NAA Rapid Test Not Detected (NotDetected)
[2022-07-16 09:32] LABS: ALT (SGPT) 14 U/L (8-55); AST (SGOT) 13 U/L (5-34); Albumin 4.2 g/dL (3.4-4.8); Alkaline Phosphatase 86 U/L (40-110); Anion Gap 13 mmol/L (10-20); BUN (Urea Nitrogen) 20 mg/dL (9.8-20.1); Bilirubin, Total 0.4 mg/dL (0.2-1.2); Calc. Creatinine Clearance 0 mL/min (70-130); Calcium 10.4 mg/dL (7.8-10.44); Carbon Dioxide 26 mmol/L (23-31); Chloride 104 mmol/L (98-107); Estimated GFR 69; Globulin 2.6 g/dL (2.4-3.5); Glucose 113 mg/dL (83-110); Magnesium 1.8 mg/dL (1.6-2.6); Potassium 3.4 mmol/L (3.5-5.1); Protein, Total 6.8 g/dL (5.8-8.1); Sodium 140 mmol/L (136-145)
[2022-07-16] MEDS ORDERED: Potassium Chloride 20 MEQ TAB PO SCH (09:45)
[2022-07-16] MEDS ORDERED: Acetaminophen 325 MG TAB PO PRN (09:50)
[2022-07-16] MEDS ORDERED: Ondansetron PF 4 MG/2 ML Vial IVP PRN (09:50)
[2022-07-16] MEDS ORDERED: Hydrochlorothiazide 25 MG TAB PO SCH (10:30)
[2022-07-16] MEDS ORDERED: Losartan 25 MG TAB PO SCH (10:30)
[2022-07-16] MEDS ORDERED: Potassium Chloride 20 MEQ TAB ONE (11:09)
[2022-07-16 11:20] LABS: Troponin I 0.129 ng/mL (< 0.028)
[2022-07-16] MEDS ORDERED: Amlodipine 10 MG TAB PO SCH (11:30)
[2022-07-16] MEDS ORDERED: Amlodipine 5 MG TAB ONE (11:43)
[2022-07-16 14:04] LABS: Troponin I 0.245 ng/mL (< 0.028)
[2022-07-16] MEDS: niCARdipine 25 MG in Sodium Chloride 0.9% 250 ML 250 ML IVPB SCH ×3 (17:55→23:59)
[2022-07-16 18:44] VITALS: BMI 45.3
[2022-07-16] MEDS: Atorvastatin Calcium 40 MG TAB PO SCH (20:13)
[2022-07-17 07:33] LABS: #Eosinphils 0.1 thou/uL (0.0-0.7); #Lymphocytes 2.1 thou/uL (1.20-3.40); #Monocytes 0.6 thou/uL (0.11-0.59); %Basophils 0.1 % (0.0-1.0); %Eosinophils 1.1 % (0.0-10.0); %Lymphocytes 21.1 % (21.0-51.0); %Neutrophils 71.8 % (42.0-75.0); Hemoglobin 12.3 g/dL (12.0-16.0); Mean Corpuscular HGB CONC 31.9 g/dL (32.0-36.0); Mean Corpuscular Hemoglobin 27.7 pg (27.0-31.0); Mean Corpuscular Volume 86.6 fl (78.0-98.0); Mean Platelet Volume 7.9 fL (7.4-10.4); Platelet Count 240 10x3/uL (130-400); RBC Distribution Width 13.5 % (11.5-14.5); Red Blood Cell (RBC) Count 4.43 mill/uL (4.20-5.40); White Blood Cell (WBC) Count 9.8 10x3/uL (4.8-10.8)
[2022-07-17 07:51] LABS: Anion Gap 13 mmol/L (10-20); BUN (Urea Nitrogen) 11 mg/dL (9.8-20.1); Calc. Creatinine Clearance 136 mL/min (70-130); Calcium 9.9 mg/dL (7.8-10.44); Carbon Dioxide 23 mmol/L (23-31); Chloride 104 mmol/L (98-107); Estimated GFR 89; Glucose 108 mg/dL (83-110); Potassium 3.7 mmol/L (3.5-5.1); Sodium 136 mmol/L (136-145)
[2022-07-17 09:44] LABS: Troponin I 0.193 ng/mL (< 0.028)
[2022-07-17] MEDS: Hydrochlorothiazide 25 MG TAB PO SCH (09:46)
[2022-07-17] MEDS: Aspirin 81 mg Enteric Coated Tablet PO SCH (09:46)
[2022-07-17] MEDS: Losartan 25 MG TAB PO SCH (09:46)
[2022-07-17 14:48] VITALS: BP 90/56
[2022-07-17] MEDS: Atorvastatin Calcium 40 MG TAB PO SCH (20:04)
[2022-07-17] MEDS ORDERED: cefTRIAXone\\ROCEPHIN 1 GM in Sodium Chloride 0.9% 100 ML IVPB SCH (21:00)
[2022-07-18] MEDS: Aspirin 81 mg Enteric Coated Tablet PO SCH (08:50)
[2022-07-18] MEDS: Hydrochlorothiazide 25 MG TAB PO SCH (08:50)
[2022-07-18] MEDS: Losartan 25 MG TAB PO SCH (08:50)
[2022-07-18 09:05] VITALS: TEMP 98.1
== END 2022-07-18 09:55 | disposition home or self-care (01) | DRG 281 ==
LOC: ERS 06:01 → ERHOLD 10:13 → 2NO 14:54 → OBSVTOIN 16:01 → CCU 17:29
PROVIDERS: ADMIT Internal Medicine; ATTEND Family Medicine
DX: I16.1 Hypertensive emergency (principal); I21.A1 Myocardial infarction type 2; I50.32 Chronic diastolic (congestive) heart failure; N39.0 Urinary tract infection, site not specified; E87.6 Hypokalemia; I11.0 Hypertensive heart disease with heart failure; I25.10 Atherosclerotic heart disease of native coronary artery without angina pectoris; I16.0 Hypertensive urgency; Z96.651 Presence of right artificial knee joint; I48.91 Unspecified atrial fibrillation; E78.5 Hyperlipidemia, unspecified; Z98.890 Other specified postprocedural states; Z91.048 Other nonmedicinal substance allergy status; Z79.82 Long term (current) use of aspirin; Z79.899 Other long term (current) drug therapy; Z90.710 Acquired absence of both cervix and uterus; Z20.822 Contact with and (suspected) exposure to COVID-19
CPT/HCPCS: 36415; 71045; 80048; 80053; 81003; 81015; 83735; 83880; 84484; 85025; 87077; 87086; 87186; 93005; 96374; G0378; J0696; J1650; J3490; J7050; U0002

== ENCOUNTER 2023-02-18 16:26 | Observation (INO) | payer MEDICARE ==
[2023-02-18 17:01] LABS: #Eosinphils 0.1 thou/uL (0.0-0.7); #Monocytes 0.9 thou/uL (0.11-0.59); %Basophils 0.2 % (0.0-1.0); %Eosinophils 0.6 % (0.0-10.0); %Lymphocytes 31.4 % (21.0-51.0); %Monocytes 8.7 % (0.0-10.0); %Neutrophils 58.7 % (42.0-75.0); Hematocrit 37.4 % (36.0-47.0); Hemoglobin 12.1 g/dL (12.0-16.0); Mean Corpuscular HGB CONC 32.4 g/dL (32.0-36.0); Mean Corpuscular Hemoglobin 26.4 pg (27.0-31.0); Mean Corpuscular Volume 81.7 fl (78.0-98.0); Mean Platelet Volume 9.4 fL (7.4-10.4); Platelet Count 261 10x3/uL (130-400); RBC Distribution Width 15.8 % (11.5-14.5); Red Blood Cell (RBC) Count 4.58 mill/uL (4.20-5.40); White Blood Cell (WBC) Count 10.3 10x3/uL (4.8-10.8)
[2023-02-18 17:26] LABS: PTT 25.8 sec (22.9-36.1); Prothrombin Time 13.7 sec (12.0-14.7)
[2023-02-18 17:28] LABS: ALT (SGPT) 13 U/L (8-55); AST (SGOT) 13 U/L (5-34); Albumin 4.1 g/dL (3.4-4.8); Alkaline Phosphatase 66 U/L (40-110); Anion Gap 13 mmol/L (10-20); BUN (Urea Nitrogen) 18 mg/dL (9.8-20.1); Bilirubin, Total 0.5 mg/dL (0.2-1.2); Calc. Creatinine Clearance 0 mL/min (70-130); Calcium 10.3 mg/dL (7.8-10.44); Carbon Dioxide 28 mmol/L (23-31); Chloride 102 mmol/L (98-107); Estimated GFR 70; Glucose 105 mg/dL (83-110); Magnesium 1.9 mg/dL (1.6-2.6); Potassium 3.3 mmol/L (3.5-5.1); Protein, Total 7.1 g/dL (5.8-8.1); Sodium 140 mmol/L (136-145)
[2023-02-18 17:32] LABS: Troponin I 0.022 ng/mL (< 0.028)
[2023-02-18] MEDS ORDERED: dilTIAZem 25 MG/5 ML VIAL ONE (18:08)
[2023-02-18] MEDS ORDERED: Digoxin 0.5 MG/2 ML AMP ONE (18:08)
[2023-02-18] MEDS ORDERED: Aspirin Chewable 81 MG TAB ONE (18:08)
[2023-02-18] MEDS ORDERED: Acetaminophen 325 MG TAB PO PRN (18:33)
[2023-02-18] MEDS ORDERED: Acetaminophen 650 MG Suppository PR PRN (18:33)
[2023-02-18] MEDS ORDERED: Ondansetron ODT 4 MG TAB PO PRN (18:33)
[2023-02-18] MEDS ORDERED: Ondansetron PF 4 MG/2 ML Vial IVP PRN (18:33)
[2023-02-18 20:52] LABS: Troponin I 0.031 ng/mL (< 0.028)
[2023-02-18 21:29] VITALS: BMI 47.3
[2023-02-18] MEDS ORDERED: Electrolyte Replacement Protocol 1 EACH FS PRN (22:15)
[2023-02-19 00:16] LABS: Troponin I 0.038 ng/mL (< 0.028)
[2023-02-19 07:30] LABS: #Eosinphils 0.1 thou/uL (0.0-0.7); #Monocytes 0.6 thou/uL (0.11-0.59); #Neutrophils 4.3 thou/uL (1.40-6.50); %Basophils 0.5 % (0.0-1.0); %Eosinophils 0.9 % (0.0-10.0); %Lymphocytes 32.7 % (21.0-51.0); %Monocytes 8.2 % (0.0-10.0); %Neutrophils 57.4 % (42.0-75.0); Hematocrit 35.7 % (36.0-47.0); Hemoglobin 11.1 g/dL (12.0-16.0); Mean Corpuscular HGB CONC 31.1 g/dL (32.0-36.0); Mean Corpuscular Hemoglobin 26.1 pg (27.0-31.0); Mean Platelet Volume 9.5 fL (7.4-10.4); Platelet Count 230 10x3/uL (130-400); RBC Distribution Width 16.1 % (11.5-14.5); Red Blood Cell (RBC) Count 4.25 mill/uL (4.20-5.40); White Blood Cell (WBC) Count 7.6 10x3/uL (4.8-10.8)
[2023-02-19 07:53] LABS: Anion Gap 11 mmol/L (10-20); BUN (Urea Nitrogen) 18 mg/dL (9.8-20.1); Calc. Creatinine Clearance 129 mL/min (70-130); Calcium 9.5 mg/dL (7.8-10.44); Carbon Dioxide 27 mmol/L (23-31); Chloride 102 mmol/L (98-107); Estimated GFR 80; Glucose 96 mg/dL (83-110); Potassium 3.2 mmol/L (3.5-5.1); Sodium 137 mmol/L (136-145)
[2023-02-19] MEDS ORDERED: Potassium Chloride 20 MEQ TAB PO SCH (08:00)
[2023-02-19] MEDS ORDERED: Magnesium 2 GM/50 ML(in water) 2 GM in Premix Bag 1 BAG IVPB SCH (08:00)
[2023-02-19 15:56] VITALS: BP 135/62; TEMP 98
[2023-02-19] MEDS ORDERED: Dronedarone HCl 400 MG TAB PO SCH (17:00)
[2023-02-19] MEDS ORDERED: Apixaban 5 MG TAB PO SCH (21:00)
== END 2023-02-19 16:32 | disposition home or self-care (01) ==
LOC: ERS 16:26 → 2NO 18:21
PROVIDERS: ADMIT Student in an Organized Health Care Education/Training Program; ATTEND Hospitalist
DX: I48.91 Unspecified atrial fibrillation (principal); R00.2 Palpitations; I25.10 Atherosclerotic heart disease of native coronary artery without angina pectoris; E78.5 Hyperlipidemia, unspecified; I10 Essential (primary) hypertension; E87.6 Hypokalemia; Z79.01 Long term (current) use of anticoagulants; Z91.048 Other nonmedicinal substance allergy status; Z79.82 Long term (current) use of aspirin; Z79.899 Other long term (current) drug therapy
CPT/HCPCS: 71045; 80048; 80053; 83735; 84484 ×2; 85025 ×2; 85610; 85730; 93005; 94760; 96372 ×2; 96374; 96375 ×2; 99285; G0378 ×3; 36415; J1160; J1650; J3475

== ENCOUNTER 2023-03-26 06:44 | Emergency (ER) | payer MEDICARE ==
[2023-03-26 08:02] LABS: #Monocytes 0.4 thou/uL (0.11-0.59); #Neutrophils 11.2 thou/uL (1.40-6.50); %Basophils 0.3 % (0.0-1.0); %Eosinophils 0.2 % (0.0-10.0); %Lymphocytes 11.7 % (21.0-51.0); %Neutrophils 84.5 % (42.0-75.0); Hematocrit 36.3 % (36.0-47.0); Hemoglobin 11.7 g/dL (12.0-16.0); Mean Corpuscular HGB CONC 32.2 g/dL (32.0-36.0); Mean Corpuscular Hemoglobin 26.7 pg (27.0-31.0); Mean Corpuscular Volume 82.9 fl (78.0-98.0); Mean Platelet Volume 10.2 fL (7.4-10.4); Platelet Count 311 10x3/uL (130-400); RBC Distribution Width 15.9 % (11.5-14.5); Red Blood Cell (RBC) Count 4.38 mill/uL (4.20-5.40); White Blood Cell (WBC) Count 13.2 10x3/uL (4.8-10.8)
[2023-03-26 08:29] LABS: Troponin I Less than 0.010 ng/mL (< 0.028)
[2023-03-26] MEDS ORDERED: Iopamidol-370 76% 500 ML MDV (1 ML CHARGE) ONE (09:20)
[2023-03-26 10:20] LABS: ALT (SGPT) 10 U/L (8-55); AST (SGOT) 9 U/L (5-34); Albumin 4.5 g/dL (3.4-4.8); Alkaline Phosphatase 59 U/L (40-110); Anion Gap 14 mmol/L (10-20); BUN (Urea Nitrogen) 14 mg/dL (9.8-20.1); Calc. Creatinine Clearance 0 mL/min (70-130); Calcium 10.1 mg/dL (7.8-10.44); Carbon Dioxide 26 mmol/L (23-31); Chloride 101 mmol/L (98-107); Estimated GFR 70; Globulin 2.8 g/dL (2.4-3.5); Glucose 114 mg/dL (83-110); Magnesium 1.8 mg/dL (1.6-2.6); Potassium 4.1 mmol/L (3.5-5.1); Protein, Total 7.3 g/dL (5.8-8.1); Sodium 137 mmol/L (136-145)
[2023-03-26 12:38] LABS: Bilirubin Negative (Negative); Blood, Urine Trace (Negative); Glucose, Urine (Dipstick) Negative (Negative); Ketone, Urine Negative (Negative); Leukocyte Negative (Negative); Nitrite Negative (Negative); Protein, Urine (Dipstick) Negative (Neg-Trace); Urobilinogen 0.2 mg/dL (Less than 2)
[2023-03-26 12:44] LABS: Clarity Clear (Clear); Specific Gravity, Urine 1.004 (1.002-1.036)
[2023-03-26 12:45] LABS: Bacteria/HPF None Seen HPF (None Seen); CAUTI Indications for Culture Alt mental st,lethar; RBC/HPF None Seen HPF (0-3); WBC/HPF None Seen HPF (0-3)
[2023-03-26 12:46] LABS: Urine Culture Reflex No No
== END 2023-03-26 12:07 | disposition home or self-care (01) ==
LOC: ERS 06:44
DX: I11.0 Hypertensive heart disease with heart failure (principal); I50.9 Heart failure, unspecified; I48.91 Unspecified atrial fibrillation; E78.5 Hyperlipidemia, unspecified; I25.10 Atherosclerotic heart disease of native coronary artery without angina pectoris; Z79.899 Other long term (current) drug therapy
CPT/HCPCS: 36415; 71045; 71275; 80053; 81001; 83735; 83880; 84484; 85025; 85379; 93005; 94760; Q9967

== ENCOUNTER 2023-04-28 09:59 | Inpatient (IN) | payer MEDICARE ==
[2023-04-28] MEDS ORDERED: Digoxin 0.5 MG/2 ML AMP ONE (11:02)
[2023-04-28 11:21] LABS: #Monocytes 0.8 thou/uL (0.11-0.59); #Neutrophils 9.1 thou/uL (1.40-6.50); %Basophils 0.3 % (0.0-1.0); %Eosinophils 0.3 % (0.0-10.0); %Monocytes 6.8 % (0.0-10.0); %Neutrophils 76.2 % (42.0-75.0); Hematocrit 39.7 % (36.0-47.0); Hemoglobin 13.1 g/dL (12.0-16.0); Mean Corpuscular Hemoglobin 26.7 pg (27.0-31.0); Mean Platelet Volume 9.5 fL (7.4-10.4); Platelet Count 306 10x3/uL (130-400); RBC Distribution Width 15.9 % (11.5-14.5); White Blood Cell (WBC) Count 11.9 10x3/uL (4.8-10.8)
[2023-04-28 11:37] LABS: INR-International Normal Ratio 1.6; PTT 32.5 sec (22.9-36.1); Prothrombin Time 19.2 sec (12.0-14.7)
[2023-04-28 11:50] LABS: ALT (SGPT) 17 U/L (8-55); AST (SGOT) 14 U/L (5-34); Albumin 4.6 g/dL (3.4-4.8); Alkaline Phosphatase 56 U/L (40-110); Anion Gap 16 mmol/L (10-20); BUN (Urea Nitrogen) 26 mg/dL (9.8-20.1); Bilirubin, Total 0.8 mg/dL (0.2-1.2); Calc. Creatinine Clearance 0 mL/min (70-130); Calcium 10.3 mg/dL (7.8-10.44); Carbon Dioxide 20 mmol/L (23-31); Chloride 103 mmol/L (98-107); Estimated GFR 38; Glucose 129 mg/dL (83-110); Lipase 22 U/L (8-78); Magnesium 2.1 mg/dL (1.6-2.6); Protein, Total 7.6 g/dL (5.8-8.1); Sodium 135 mmol/L (136-145)
[2023-04-28 11:52] LABS: Troponin I Less than 0.010 ng/mL (< 0.028)
[2023-04-28] MEDS ORDERED: dilTIAZem 125 MG/25 ML SDV ONE (12:38)
[2023-04-28] MEDS ORDERED: Ondansetron PF 4 MG/2 ML Vial IVP PRN (13:10)
[2023-04-28] MEDS ORDERED: Acetaminophen 325 MG TAB PO PRN (13:10)
[2023-04-28 13:14] LABS: SARS-CoV-2 NAA Rapid Test Not Detected (NotDetected)
[2023-04-28] MEDS ORDERED: dilTIAZem 125 MG in Sodium Chloride 0.9% 100 ML IVPB SCH (13:15)
[2023-04-28] MEDS ORDERED: dilTIAZem 125 MG, Admixture Fee 1 EACH in Sodium Chloride 0.9% 100 ML IVPB SCH (13:30)
[2023-04-28 15:41] LABS: Troponin I 0.013 ng/mL (< 0.028)
[2023-04-28 16:34] LABS: Hemoglobin A1c 5.8 % (4.0-6.0)
[2023-04-28] MEDS: Sodium Chloride 0.9% 1,000 ML IV SCH (17:11)
[2023-04-28] MEDS: Dronedarone HCl 400 MG TAB PO SCH (17:13)
[2023-04-28 17:49] VITALS: BMI 45.7
[2023-04-28 18:32] LABS: Troponin I 0.013 ng/mL (< 0.028)
[2023-04-28] MEDS: Apixaban 5 MG TAB PO SCH (20:56)
[2023-04-28] MEDS: Ranolazine 500 MG ER.TAB PO SCH (20:56)
[2023-04-29] MEDS: Sodium Chloride 0.9% 1,000 ML IV SCH ×2 (03:26→09:30)
[2023-04-29 05:40] LABS: #Eosinphils 0.1 thou/uL (0.0-0.7); #Monocytes 0.9 thou/uL (0.11-0.59); #Neutrophils 7.1 thou/uL (1.40-6.50); %Basophils 0.3 % (0.0-1.0); %Lymphocytes 26.2 % (21.0-51.0); %Monocytes 8.1 % (0.0-10.0); %Neutrophils 64.1 % (42.0-75.0); Hematocrit 36.3 % (36.0-47.0); Hemoglobin 11.4 g/dL (12.0-16.0); Mean Corpuscular HGB CONC 31.4 g/dL (32.0-36.0); Mean Corpuscular Hemoglobin 25.9 pg (27.0-31.0); Mean Corpuscular Volume 82.5 fl (78.0-98.0); Mean Platelet Volume 9.7 fL (7.4-10.4); Platelet Count 248 10x3/uL (130-400)
[2023-04-29 06:32] LABS: ALT (SGPT) 13 U/L (8-55); AST (SGOT) 13 U/L (5-34); Albumin 3.7 g/dL (3.4-4.8); Alkaline Phosphatase 45 U/L (40-110); Anion Gap 13 mmol/L (10-20); BUN (Urea Nitrogen) 21 mg/dL (9.8-20.1); Bilirubin, Direct 0.3 mg/dL (0.1-0.3); Bilirubin, Total 0.7 mg/dL (0.2-1.2); Calc. Creatinine Clearance 101 mL/min (70-130); Calcium 8.9 mg/dL (7.8-10.44); Carbon Dioxide 18 mmol/L (23-31); Chloride 111 mmol/L (98-107); Estimated GFR 62; Glucose 88 mg/dL (83-110); Magnesium 1.9 mg/dL (1.6-2.6); Potassium 3.8 mmol/L (3.5-5.1); Protein, Total 6.1 g/dL (5.8-8.1); Sodium 138 mmol/L (136-145)
[2023-04-29] MEDS ORDERED: Electrolyte Replacement Protocol 1 EACH FS SCH (07:30)
[2023-04-29] MEDS ORDERED: Magnesium 2 GM/50 ML(in water) 2 GM in Premix 1 BAG IVPB SCH (08:00)
[2023-04-29] MEDS ORDERED: Potassium Chloride 20 MEQ TAB PO SCH (08:00)
[2023-04-29] MEDS ORDERED: dilTIAZem 125 MG, Admixture Fee 1 EACH in Sodium Chloride 0.9% 100 ML IVPB SCH (08:00)
[2023-04-29] MEDS: Lidocaine 4% Patch TD SCH (10:42)
[2023-04-29] MEDS: Fluticasone Propionate Nasal Spray 16 gm Bottle NASAL SCH (10:42)
[2023-04-29] MEDS: Dronedarone HCl 400 MG TAB PO SCH ×2 (10:42→16:57)
[2023-04-29] MEDS: Atorvastatin Calcium 10 MG TAB PO SCH (10:42)
[2023-04-29] MEDS: Aspirin Chewable 81 MG TAB PO SCH (10:42)
[2023-04-29] MEDS: Apixaban 5 MG TAB PO SCH ×2 (10:42→21:28)
[2023-04-29] MEDS: Ranolazine 500 MG ER.TAB PO SCH ×2 (10:43→21:28)
[2023-04-29] MEDS ORDERED: fentaNYL 50 mcg/mL 1 mL Vial ONE (11:37)
[2023-04-29] MEDS ORDERED: PROPOFOL 20 ML ONE (11:41)
[2023-04-29] MEDS ORDERED: Ondansetron HCl/PF 4 MG/2 ML Vial IVP PRN (12:17)
[2023-04-29] MEDS ORDERED: Promethazine HCl 25 MG/ML VIAL IM PRN (12:17)
[2023-04-29 16:11] LABS: Potassium 5.4 mmol/L (3.5-5.1)
[2023-04-29 18:30] LABS: Bacteria/HPF 1+ HPF (None Seen); Bilirubin Negative (Negative); Blood, Urine Negative (Negative); CAUTI Indications for Culture Pelvic or flank pain; Clarity Clear (Clear); Glucose, Urine (Dipstick) Greater than 1000 mg/dL (Negative); Ketone, Urine Negative (Negative); Leukocyte 250 Leu/uL (Negative); Nitrite 1+ (Negative); Protein, Urine (Dipstick) 10 mg/dL (Neg-Trace); RBC/HPF 0-3 HPF (0-3); Specific Gravity, Urine 1.029 (1.002-1.036); Urobilinogen Normal mg/dL (Less than 2); WBC/HPF 21-50 HPF (0-3)
[2023-04-29 18:31] LABS: Urine Culture Reflex Yes Yes
[2023-04-29] MEDS: Furosemide 20 MG/2 ML VIAL SLOW IVP SCH ×2 (19:14→19:22)
[2023-04-29] MEDS ORDERED: Transdermal Patch Removal TOP SCH (21:00)
[2023-04-29] MEDS: Nitrofurantoin Macrocrystal 50 MG CAP PO SCH (21:28)
[2023-04-29 23:47] LABS: Anion Gap 13 mmol/L (10-20); BUN (Urea Nitrogen) 23 mg/dL (9.8-20.1); Calc. Creatinine Clearance 91 mL/min (70-130); Calcium 8.8 mg/dL (7.8-10.44); Carbon Dioxide 18 mmol/L (23-31); Chloride 111 mmol/L (98-107); Estimated GFR 55; Glucose 92 mg/dL (83-110); Potassium 4.2 mmol/L (3.5-5.1); Sodium 138 mmol/L (136-145)
[2023-04-30 04:46] LABS: #Eosinphils 0.2 thou/uL (0.0-0.7); #Monocytes 0.9 thou/uL (0.11-0.59); #Neutrophils 6.6 thou/uL (1.40-6.50); %Basophils 0.3 % (0.0-1.0); %Eosinophils 1.5 % (0.0-10.0); %Monocytes 9.1 % (0.0-10.0); %Neutrophils 63.8 % (42.0-75.0); Hematocrit 32.9 % (36.0-47.0); Hemoglobin 10.4 g/dL (12.0-16.0); Mean Corpuscular HGB CONC 31.6 g/dL (32.0-36.0); Mean Corpuscular Hemoglobin 26.4 pg (27.0-31.0); Mean Corpuscular Volume 83.5 fl (78.0-98.0); Mean Platelet Volume 9.5 fL (7.4-10.4); Platelet Count 230 10x3/uL (130-400); RBC Distribution Width 16.4 % (11.5-14.5); Red Blood Cell (RBC) Count 3.94 mill/uL (4.20-5.40); White Blood Cell (WBC) Count 10.4 10x3/uL (4.8-10.8)
[2023-04-30 05:13] LABS: Anion Gap 11 mmol/L (10-20); BUN (Urea Nitrogen) 23 mg/dL (9.8-20.1); Calc. Creatinine Clearance 100 mL/min (70-130); Calcium 8.7 mg/dL (7.8-10.44); Carbon Dioxide 19 mmol/L (23-31); Chloride 109 mmol/L (98-107); Estimated GFR 61; Glucose 93 mg/dL (83-110); Magnesium 2.3 mg/dL (1.6-2.6); Potassium 4.3 mmol/L (3.5-5.1); Sodium 135 mmol/L (136-145)
[2023-04-30] MEDS: Apixaban 5 MG TAB PO SCH (09:02)
[2023-04-30] MEDS: Aspirin Chewable 81 MG TAB PO SCH (09:02)
[2023-04-30] MEDS: Dronedarone HCl 400 MG TAB PO SCH (09:02)
[2023-04-30] MEDS: Atorvastatin Calcium 10 MG TAB PO SCH (09:03)
[2023-04-30] MEDS: Nitrofurantoin Macrocrystal 50 MG CAP PO SCH ×2 (09:03→14:49)
[2023-04-30] MEDS: Fluticasone Propionate Nasal Spray 16 gm Bottle NASAL SCH (09:03)
[2023-04-30] MEDS: Ranolazine 500 MG ER.TAB PO SCH (09:03)
[2023-04-30] MEDS: Lidocaine 4% Patch TD SCH (09:03)
[2023-04-30 11:55] VITALS: BP 138/64; TEMP 98.1
== END 2023-04-30 15:20 | disposition home or self-care (01) | DRG 309 ==
LOC: SUATTDRO 09:59 → ERS 09:59 → 2SW 13:12 → OBSVTOIN 13:12 → INTOOBSV 13:12 → OBSVTOIN 04-29 20:02
PROVIDERS: ADMIT Family Medicine; ATTEND Internal Medicine
PROC: B24BZZ4 Ultrasonography of Heart with Aorta, Transesophageal (ICD-10-PCS; principal; 2023-04-29)
PROC: 5A2204Z Restoration of Cardiac Rhythm, Single (ICD-10-PCS; 2023-04-29)
DX: I48.19 Other persistent atrial fibrillation (principal); E87.1 Hypo-osmolality and hyponatremia; N17.9 Acute kidney failure, unspecified; N39.0 Urinary tract infection, site not specified; Z68.42 Body mass index [BMI] 45.0-49.9, adult; E78.5 Hyperlipidemia, unspecified; I10 Essential (primary) hypertension; I25.10 Atherosclerotic heart disease of native coronary artery without angina pectoris; Z91.048 Other nonmedicinal substance allergy status; Z79.899 Other long term (current) drug therapy; Z79.01 Long term (current) use of anticoagulants; Z90.710 Acquired absence of both cervix and uterus; Z96.651 Presence of right artificial knee joint; Z11.52 Encounter for screening for COVID-19; M19.90 Unspecified osteoarthritis, unspecified site; I34.0 Nonrheumatic mitral (valve) insufficiency; E66.01 Morbid (severe) obesity due to excess calories; N32.81 Overactive bladder; E87.5 Hyperkalemia
CPT/HCPCS: 36415; 71045; 80048; 80053; 80076; 81001; 83036; 83690; 83735; 83880; 84443; 84484; 85025; 85610; 85730; 86850; 86900; 86901; 87040; 87077; 87086; 87186; 92960; 93005; 93010; 93312; 96375; 96376; G0378; J1160; J1940; J2704; J3010; J3475; J3490; J7050

== ENCOUNTER 2023-05-09 06:55 | Emergency (ER) | payer MEDICARE ==
[2023-05-09] MEDS ORDERED: Metoprolol Tartrate 5 MG/5 ML VIAL ONE (08:01)
[2023-05-09 08:04] LABS: #Eosinphils 0.1 thou/uL (0.0-0.7); #Monocytes 0.6 thou/uL (0.11-0.59); #Neutrophils 6.1 thou/uL (1.40-6.50); %Basophils 0.3 % (0.0-1.0); %Eosinophils 0.5 % (0.0-10.0); %Lymphocytes 25.5 % (21.0-51.0); %Monocytes 6.3 % (0.0-10.0); %Neutrophils 67.1 % (42.0-75.0); Hematocrit 37.6 % (36.0-47.0); Hemoglobin 12.3 g/dL (12.0-16.0); Mean Corpuscular HGB CONC 32.7 g/dL (32.0-36.0); Mean Corpuscular Hemoglobin 26.6 pg (27.0-31.0); Mean Corpuscular Volume 81.2 fl (78.0-98.0); Mean Platelet Volume 9.4 fL (7.4-10.4); Platelet Count 324 10x3/uL (130-400); RBC Distribution Width 16.4 % (11.5-14.5); Red Blood Cell (RBC) Count 4.63 mill/uL (4.20-5.40); White Blood Cell (WBC) Count 9.2 10x3/uL (4.8-10.8)
[2023-05-09 08:27] LABS: ALT (SGPT) 14 U/L (8-55); AST (SGOT) 11 U/L (5-34); Albumin 4.2 g/dL (3.4-4.8); Alkaline Phosphatase 57 U/L (40-110); Anion Gap 15 mmol/L (10-20); BUN (Urea Nitrogen) 16 mg/dL (9.8-20.1); Bilirubin, Total 0.7 mg/dL (0.2-1.2); Calc. Creatinine Clearance 0 mL/min (70-130); Calcium 10.1 mg/dL (7.8-10.44); Carbon Dioxide 23 mmol/L (23-31); Chloride 103 mmol/L (98-107); Estimated GFR 49; Globulin 3.1 g/dL (2.4-3.5); Glucose 121 mg/dL (83-110); Magnesium 1.9 mg/dL (1.6-2.6); Potassium 4.1 mmol/L (3.5-5.1); Protein, Total 7.3 g/dL (5.8-8.1); Sodium 137 mmol/L (136-145)
[2023-05-09 08:30] LABS: Troponin I 0.014 ng/mL (< 0.028)
[2023-05-09] MEDS ORDERED: Midazolam HCl 2 mg/2 ml Vial ONE (09:58)
[2023-05-09] MEDS ORDERED: Ketamine In 0.9 % NaCl 50 MG/5 ML SYRINGE ONE (10:03)
[2023-05-09] MEDS ORDERED: Ondansetron PF 4 MG/2 ML Vial ONE (10:41)
== END 2023-05-09 12:09 | disposition home or self-care (01) ==
LOC: ERS 06:55
DX: I48.91 Unspecified atrial fibrillation (principal); I10 Essential (primary) hypertension; Z79.899 Other long term (current) drug therapy; Z79.01 Long term (current) use of anticoagulants
CPT/HCPCS: 80053; 83735; 84443; 84484; 85025; 92960; 93005; 96374; 96375; 99152; J2250; J2405; J3490

== ENCOUNTER 2023-06-12 08:56 | Day surgery (SDC) | payer MEDICARE ==
[2023-06-07 13:00] VITALS: BMI 44.6
[2023-06-12] MEDS ORDERED: Protamine Sulfate 50 MG/5 ML VIAL ONE (09:24)
[2023-06-12] MEDS ORDERED: Heparin 25,000 units/D5W 500 ML ONE (09:24)
[2023-06-12] MEDS ORDERED: Heparin 10,000 UNITS/ 10 ML VIAL ONE (09:24)
[2023-06-12 10:29] LABS: #Monocytes 0.7 thou/uL (0.11-0.59); #Neutrophils 8.2 thou/uL (1.40-6.50); %Basophils 0.3 % (0.0-1.0); %Eosinophils 0.3 % (0.0-10.0); %Lymphocytes 21.8 % (21.0-51.0); %Monocytes 6.1 % (0.0-10.0); %Neutrophils 71.2 % (42.0-75.0); Hematocrit 39.3 % (36.0-47.0); Hemoglobin 12.6 g/dL (12.0-16.0); Mean Corpuscular HGB CONC 32.1 g/dL (32.0-36.0); Mean Corpuscular Hemoglobin 26.5 pg (27.0-31.0); Mean Corpuscular Volume 82.7 fl (78.0-98.0); Mean Platelet Volume 9.3 fL (7.4-10.4); Platelet Count 302 10x3/uL (130-400); RBC Distribution Width 17.1 % (11.5-14.5); Red Blood Cell (RBC) Count 4.75 mill/uL (4.20-5.40); White Blood Cell (WBC) Count 11.6 10x3/uL (4.8-10.8)
[2023-06-12 10:53] LABS: Anion Gap 14 mmol/L (10-20); BUN (Urea Nitrogen) 21 mg/dL (9.8-20.1); Calc. Creatinine Clearance 83 mL/min (70-130); Calcium 9.7 mg/dL (7.8-10.44); Carbon Dioxide 22 mmol/L (23-31); Chloride 106 mmol/L (98-107); Estimated GFR 51; Glucose 98 mg/dL (83-110); Potassium 3.9 mmol/L (3.5-5.1); Sodium 138 mmol/L (136-145)
[2023-06-12] MEDS ORDERED: Midazolam HCl 2 mg/2 ml Vial ONE ×2 (11:09→13:43)
[2023-06-12] MEDS ORDERED: Sevoflurane 250 ML INH ANEST BOTTLE ONE (12:02)
[2023-06-12] MEDS ORDERED: Rocuronium Bromide 10 MG/ML (10ML VIAL) ONE (12:10)
[2023-06-12] MEDS ORDERED: Lidocaine 1% PF 5 ML VIAL ONE (12:10)
[2023-06-12] MEDS ORDERED: PHENYLEPHRINE-NS 100 MCG/ML 10 ML SYRINGE ONE (12:10)
[2023-06-12] MEDS ORDERED: Dexamethasone 20 MG/5 ML VIAL ONE (12:10)
[2023-06-12] MEDS ORDERED: ePHEDrine Sulfate 50 MG/10 ML VIAL ONE (12:10)
[2023-06-12] MEDS ORDERED: Succinylcholine 200 MG/10 ml SYRINGE FS ONE (12:10)
[2023-06-12] MEDS ORDERED: PROPOFOL 200 MG/20 ML VIAL ONE (12:10)
[2023-06-12] MEDS ORDERED: Ondansetron PF 4 MG/2 ML Vial ONE (12:10)
[2023-06-12] MEDS ORDERED: PROPOFOL 20 ML ONE (12:53)
[2023-06-12] MEDS ORDERED: Isoproterenol 0.2 MG/1 ML AMP ONE (13:02)
[2023-06-12] MEDS ORDERED: fentaNYL 50 mcg/mL 1 mL Vial ONE (15:25)
[2023-06-12] MEDS ORDERED: Ondansetron HCl/PF 4 MG/2 ML Vial IVP PRN (16:02)
[2023-06-12] MEDS ORDERED: Morphine Sulfate 2 MG/ML SYRINGE SLOW IVP PRN (16:02)
[2023-06-12] MEDS ORDERED: HYDROmorphone 2 MG/ML VIAL SLOW IVP PRN (16:02)
[2023-06-12] MEDS ORDERED: Promethazine HCl 25 MG/ML VIAL IM PRN (16:02)
== END 2023-06-12 20:05 | disposition home or self-care (01) ==
LOC: SDC 08:56
PROVIDERS: ATTEND Internal Medicine Cardiovascular Disease
PROC: 4A027FZ Measurement of Cardiac Rhythm, Via Natural or Artificial Opening (ICD-10-PCS; principal; 2023-06-12)
PROC: 4A0274Z Measurement of Cardiac Electrical Activity, Via Natural or Artificial Opening (ICD-10-PCS; 2023-06-12)
DX: I48.19 Other persistent atrial fibrillation (principal); E78.5 Hyperlipidemia, unspecified; E66.01 Morbid (severe) obesity due to excess calories; N32.81 Overactive bladder; I49.3 Ventricular premature depolarization; I11.0 Hypertensive heart disease with heart failure; I50.9 Heart failure, unspecified; I25.10 Atherosclerotic heart disease of native coronary artery without angina pectoris; Z79.01 Long term (current) use of anticoagulants; Z68.41 Body mass index [BMI] 40.0-44.9, adult; Z79.899 Other long term (current) drug therapy; Z91.048 Other nonmedicinal substance allergy status; Z87.891 Personal history of nicotine dependence; Z86.79 Personal history of other diseases of the circulatory system; Z98.890 Other specified postprocedural states; Z88.8 Allergy status to other drugs, medicaments and biological substances
CPT/HCPCS: 80048; 85025; 85347 ×2; 93005; 93623; 93656; 93657; C1732 ×2; C1759; C1760; C1893; C1894; J3010; 36415; C1884; J1100; J1644; J2250; J2405; J2704; J2720

== ENCOUNTER 2023-06-18 07:53 | Inpatient (IN) | payer MEDICARE ==
[2023-06-18] MEDS ORDERED: Metoprolol Tartrate 5 MG (5 mL) VIAL ONE (08:40)
[2023-06-18] MEDS ORDERED: Magnesium 2 GM/50 ML BAG (IN WATER) ONE (08:40)
[2023-06-18 08:46] LABS: #Monocytes 0.9 thou/uL (0.11-0.59); #Neutrophils 8.1 thou/uL (1.40-6.50); %Basophils 0.2 % (0.0-1.0); %Eosinophils 0.4 % (0.0-10.0); %Lymphocytes 17.4 % (21.0-51.0); %Monocytes 8.2 % (0.0-10.0); %Neutrophils 73.5 % (42.0-75.0); Hematocrit 36.4 % (36.0-47.0); Hemoglobin 11.9 g/dL (12.0-16.0); Mean Corpuscular HGB CONC 32.7 g/dL (32.0-36.0); Mean Corpuscular Hemoglobin 26.3 pg (27.0-31.0); Mean Corpuscular Volume 80.4 fl (78.0-98.0); Platelet Count 235 10x3/uL (130-400); RBC Distribution Width 17.2 % (11.5-14.5); Red Blood Cell (RBC) Count 4.53 mill/uL (4.20-5.40)
[2023-06-18 09:08] LABS: ALT (SGPT) 12 U/L (8-55); AST (SGOT) 15 U/L (5-34); Albumin 4.1 g/dL (3.4-4.8); Alkaline Phosphatase 48 U/L (40-110); Anion Gap 16 mmol/L (10-20); BUN (Urea Nitrogen) 18 mg/dL (9.8-20.1); Bilirubin, Total 0.9 mg/dL (0.2-1.2); Calc. Creatinine Clearance 0 mL/min (70-130); Calcium 9.2 mg/dL (7.8-10.44); Carbon Dioxide 21 mmol/L (23-31); Chloride 102 mmol/L (98-107); Estimated GFR 72; Globulin 3.1 g/dL (2.4-3.5); Glucose 101 mg/dL (83-110); Magnesium 1.9 mg/dL (1.6-2.6); Potassium 3.6 mmol/L (3.5-5.1); Protein, Total 7.2 g/dL (5.8-8.1); Sodium 135 mmol/L (136-145)
[2023-06-18 09:20] LABS: Troponin I 0.479 ng/mL (< 0.028)
[2023-06-18 09:29] LABS: SARS-CoV-2 NAA Rapid Test DETECTED (NotDetected)
[2023-06-18] MEDS ORDERED: Acetaminophen 325 MG TAB ONE (11:02)
[2023-06-18] MEDS ORDERED: Digoxin 0.5 MG/2 ML AMP ONE (11:03)
[2023-06-18] MEDS ORDERED: Aspirin Chewable 81 MG TAB ONE (11:03)
[2023-06-18] MEDS ORDERED: Ondansetron ODT 4 MG TAB PO PRN (12:57)
[2023-06-18] MEDS ORDERED: Albuterol 200 PUFF (6.7GM INHALER) INH PRN (12:57)
[2023-06-18] MEDS ORDERED: Ondansetron PF 4 MG/2 ML Vial IVP PRN (12:57)
[2023-06-18 13:04] LABS: Critical Call Chem Troponin I NUR.KIM@1; Troponin I 0.484 ng/mL (< 0.028)
[2023-06-18 16:45] VITALS: BMI 46.0
[2023-06-18] MEDS: Sucralfate 1 GM TAB PO SCH ×2 (17:49→20:51)
[2023-06-18 20:37] LABS: Critical Call Chem Troponin I RESULT DECREASING; Troponin I 0.476 ng/mL (< 0.028)
[2023-06-18] MEDS: Ranolazine 500 MG ER.TAB PO SCH (20:51)
[2023-06-18] MEDS: Apixaban 5 MG TAB PO SCH (20:51)
[2023-06-18] MEDS: Famotidine 20 MG TAB PO SCH (20:51)
[2023-06-18] MEDS: Flecainide 50 MG TAB PO SCH (20:51)
[2023-06-18] MEDS: Benzonatate 100 MG CAP PO PRN (20:55)
[2023-06-19 06:29] LABS: #Eosinphils 0.1 thou/uL (0.0-0.7); #Monocytes 0.7 thou/uL (0.11-0.59); #Neutrophils 5.4 thou/uL (1.40-6.50); %Basophils 0.2 % (0.0-1.0); %Eosinophils 0.8 % (0.0-10.0); %Lymphocytes 25.9 % (21.0-51.0); %Neutrophils 64.9 % (42.0-75.0); Hematocrit 33.3 % (36.0-47.0); Hemoglobin 10.8 g/dL (12.0-16.0); Mean Corpuscular HGB CONC 32.4 g/dL (32.0-36.0); Mean Corpuscular Hemoglobin 26.3 pg (27.0-31.0); Mean Platelet Volume 9.8 fL (7.4-10.4); Platelet Count 252 10x3/uL (130-400); RBC Distribution Width 17.2 % (11.5-14.5); Red Blood Cell (RBC) Count 4.11 mill/uL (4.20-5.40); White Blood Cell (WBC) Count 8.3 10x3/uL (4.8-10.8)
[2023-06-19 07:02] LABS: ALT (SGPT) 9 U/L (8-55); AST (SGOT) 12 U/L (5-34); Albumin 3.5 g/dL (3.4-4.8); Alkaline Phosphatase 44 U/L (40-110); Anion Gap 12 mmol/L (10-20); BUN (Urea Nitrogen) 16 mg/dL (9.8-20.1); Bilirubin, Total 0.9 mg/dL (0.2-1.2); Calc. Creatinine Clearance 127 mL/min (70-130); Calcium 8.4 mg/dL (7.8-10.44); Carbon Dioxide 20 mmol/L (23-31); Chloride 104 mmol/L (98-107); Estimated GFR 82; Globulin 2.7 g/dL (2.4-3.5); Glucose 99 mg/dL (83-110); Potassium 3.4 mmol/L (3.5-5.1); Protein, Total 6.2 g/dL (5.8-8.1); Sodium 133 mmol/L (136-145)
[2023-06-19] MEDS: Zinc Sulfate 220 MG CAP PO SCH (08:24)
[2023-06-19] MEDS: Sucralfate 1 GM TAB PO SCH ×4 (08:24→20:15)
[2023-06-19] MEDS: Apixaban 5 MG TAB PO SCH ×2 (08:25→20:38)
[2023-06-19] MEDS: Spironolactone 25 MG TAB PO SCH (08:25)
[2023-06-19] MEDS: Flecainide 50 MG TAB PO SCH ×2 (08:25→20:15)
[2023-06-19] MEDS: Famotidine 20 MG TAB PO SCH ×2 (08:25→20:15)
[2023-06-19] MEDS: Ascorbic Acid 500 mg Chewable Tablet PO SCH (08:25)
[2023-06-19] MEDS: Cholecalciferol (Vitamin D3) 400 UNITS TAB PO SCH (08:25)
[2023-06-19] MEDS: Isosorbide Mononitrate 60 MG ER.TAB PO SCH (08:26)
[2023-06-19] MEDS: Ranolazine 500 MG ER.TAB PO SCH ×2 (08:26→20:15)
[2023-06-19] MEDS: Potassium Chloride 20 MEQ TAB PO SCH ×2 (08:26→18:17)
[2023-06-19] MEDS: Empagliflozin 10 MG TAB PO SCH (08:27)
[2023-06-19] MEDS ORDERED: dilTIAZem 30 MG TAB PO PRN (10:58)
[2023-06-19] MEDS: dilTIAZem 25 MG/5 ML VIAL SLOW IVP PRN ×3 (11:39→20:38)
[2023-06-19] MEDS: dilTIAZem 30 MG TAB PO SCH ×2 (18:17→20:18)
[2023-06-19] MEDS: Clotrimazole 2% 3 Day Vag Cr 22.2 GM TUBE VAG SCH (19:30)
[2023-06-19] MEDS: Atorvastatin Calcium 10 MG TAB PO SCH (20:18)
[2023-06-20] MEDS: dilTIAZem 25 MG/5 ML VIAL SLOW IVP PRN (01:50)
[2023-06-20 04:41] LABS: #Eosinphils 0.1 thou/uL (0.0-0.7); #Monocytes 0.8 thou/uL (0.11-0.59); #Neutrophils 5.6 thou/uL (1.40-6.50); %Basophils 0.3 % (0.0-1.0); %Eosinophils 0.6 % (0.0-10.0); %Lymphocytes 28.8 % (21.0-51.0); %Monocytes 8.4 % (0.0-10.0); %Neutrophils 61.6 % (42.0-75.0); Hematocrit 33.3 % (36.0-47.0); Hemoglobin 10.8 g/dL (12.0-16.0); Mean Corpuscular HGB CONC 32.4 g/dL (32.0-36.0); Mean Corpuscular Volume 80.2 fl (78.0-98.0); Mean Platelet Volume 9.8 fL (7.4-10.4); Platelet Count 251 10x3/uL (130-400); Red Blood Cell (RBC) Count 4.15 mill/uL (4.20-5.40); White Blood Cell (WBC) Count 9.1 10x3/uL (4.8-10.8)
[2023-06-20 05:11] LABS: Anion Gap 12 mmol/L (10-20); BUN (Urea Nitrogen) 14 mg/dL (9.8-20.1); Calc. Creatinine Clearance 117 mL/min (70-130); Calcium 8.4 mg/dL (7.8-10.44); Carbon Dioxide 20 mmol/L (23-31); Chloride 107 mmol/L (98-107); Estimated GFR 75; Glucose 104 mg/dL (83-110); Magnesium 1.9 mg/dL (1.6-2.6); Potassium 3.5 mmol/L (3.5-5.1); Sodium 135 mmol/L (136-145)
[2023-06-20] MEDS: dilTIAZem 30 MG TAB PO SCH ×4 (08:22→21:06)
[2023-06-20] MEDS: Zinc Sulfate 220 MG CAP PO SCH (08:22)
[2023-06-20] MEDS: Isosorbide Mononitrate 60 MG ER.TAB PO SCH (08:22)
[2023-06-20] MEDS: Cholecalciferol (Vitamin D3) 400 UNITS TAB PO SCH (08:23)
[2023-06-20] MEDS: Ranolazine 500 MG ER.TAB PO SCH ×2 (08:23→21:07)
[2023-06-20] MEDS: Spironolactone 25 MG TAB PO SCH (08:23)
[2023-06-20] MEDS: Famotidine 20 MG TAB PO SCH ×2 (08:23→21:06)
[2023-06-20] MEDS: Flecainide 50 MG TAB PO SCH ×2 (08:23→21:06)
[2023-06-20] MEDS: Sucralfate 1 GM TAB PO SCH ×4 (08:23→21:07)
[2023-06-20] MEDS: Ascorbic Acid 500 mg Chewable Tablet PO SCH (08:23)
[2023-06-20] MEDS: Apixaban 5 MG TAB PO SCH ×2 (08:23→21:07)
[2023-06-20] MEDS: Empagliflozin 10 MG TAB PO SCH (08:23)
[2023-06-20] MEDS ORDERED: Potassium Chloride 20 MEQ TAB PO SCH (08:30)
[2023-06-20] MEDS ORDERED: Magnesium 2 GM/50 ML(in water) 2 GM in Premix 1 BAG IVPB SCH (08:30)
[2023-06-20] MEDS: Benzonatate 100 MG CAP PO PRN (21:12)
[2023-06-20] MEDS: Clotrimazole 2% 3 Day Vag Cr 22.2 GM TUBE VAG SCH (21:13)
[2023-06-21] MEDS: Benzonatate 100 MG CAP PO PRN (03:15)
[2023-06-21] MEDS: Acetaminophen 325 MG TAB PO PRN ×2 (05:56→09:17)
[2023-06-21 06:02] LABS: #Eosinphils 0.1 thou/uL (0.0-0.7); #Monocytes 0.7 thou/uL (0.11-0.59); #Neutrophils 6.2 thou/uL (1.40-6.50); %Basophils 0.2 % (0.0-1.0); %Eosinophils 0.8 % (0.0-10.0); %Lymphocytes 26.2 % (21.0-51.0); %Monocytes 7.5 % (0.0-10.0); %Neutrophils 64.8 % (42.0-75.0); Hematocrit 32.9 % (36.0-47.0); Hemoglobin 10.6 g/dL (12.0-16.0); Mean Corpuscular HGB CONC 32.2 g/dL (32.0-36.0); Mean Corpuscular Hemoglobin 26.1 pg (27.0-31.0); Mean Platelet Volume 9.9 fL (7.4-10.4); Platelet Count 272 10x3/uL (130-400); Red Blood Cell (RBC) Count 4.06 mill/uL (4.20-5.40); White Blood Cell (WBC) Count 9.6 10x3/uL (4.8-10.8)
[2023-06-21 06:24] LABS: Anion Gap 12 mmol/L (10-20); BUN (Urea Nitrogen) 15 mg/dL (9.8-20.1); Calc. Creatinine Clearance 120 mL/min (70-130); Calcium 8.6 mg/dL (7.8-10.44); Carbon Dioxide 22 mmol/L (23-31); Chloride 105 mmol/L (98-107); Estimated GFR 77; Glucose 97 mg/dL (83-110); Potassium 3.6 mmol/L (3.5-5.1); Sodium 135 mmol/L (136-145)
[2023-06-21 07:39] VITALS: BP 128/58; TEMP 97.2
[2023-06-21] MEDS ORDERED: Spironolactone 25 MG TAB PO SCH (08:00)
[2023-06-21] MEDS ORDERED: Magnesium 2 GM/50 ML(in water) 2 GM in Premix 1 BAG IVPB SCH (08:30)
[2023-06-21] MEDS ORDERED: Potassium Chloride 20 MEQ TAB PO SCH (08:30)
[2023-06-21] MEDS: Cholecalciferol (Vitamin D3) 400 UNITS TAB PO SCH (09:17)
[2023-06-21] MEDS: dilTIAZem 30 MG TAB PO SCH (09:17)
[2023-06-21] MEDS: Sucralfate 1 GM TAB PO SCH (09:17)
[2023-06-21] MEDS: Ranolazine 500 MG ER.TAB PO SCH (09:17)
[2023-06-21] MEDS: Ascorbic Acid 500 mg Chewable Tablet PO SCH (09:17)
[2023-06-21] MEDS: Flecainide 50 MG TAB PO SCH (09:18)
[2023-06-21] MEDS: Apixaban 5 MG TAB PO SCH (09:18)
[2023-06-21] MEDS: Famotidine 20 MG TAB PO SCH (09:18)
[2023-06-21] MEDS: Zinc Sulfate 220 MG CAP PO SCH (09:18)
[2023-06-21] MEDS: Isosorbide Mononitrate 60 MG ER.TAB PO SCH (09:18)
[2023-06-21] MEDS: Empagliflozin 10 MG TAB PO SCH (09:19)
== END 2023-06-21 11:45 | disposition home or self-care (01) | DRG 178 ==
LOC: ERS 07:53 → ERHOLD 11:06 → 2NO 16:07
PROVIDERS: ADMIT Family Medicine; ATTEND Internal Medicine
DX: U07.1 COVID-19 (principal); E87.1 Hypo-osmolality and hyponatremia; I48.19 Other persistent atrial fibrillation; J06.9 Acute upper respiratory infection, unspecified; I10 Essential (primary) hypertension; I25.10 Atherosclerotic heart disease of native coronary artery without angina pectoris; K21.9 Gastro-esophageal reflux disease without esophagitis; R79.89 Other specified abnormal findings of blood chemistry; E87.6 Hypokalemia; E83.42 Hypomagnesemia; Z96.651 Presence of right artificial knee joint; Z79.899 Other long term (current) drug therapy; Z98.891 History of uterine scar from previous surgery; Z90.710 Acquired absence of both cervix and uterus; Z98.890 Other specified postprocedural states; Z82.49 Family history of ischemic heart disease and other diseases of the circulatory system
CPT/HCPCS: 36415; 71045; 80048; 80053; 83735; 83880; 84484; 85025; 93005; 93010; 94760; 96365; 96375; J1160; J3475

== ENCOUNTER 2023-06-22 20:46 | Inpatient (IN) | payer MEDICARE ==
[2023-06-22 21:47] LABS: #Eosinphils 0.1 thou/uL (0.0-0.7); #Monocytes 0.6 thou/uL (0.11-0.59); #Neutrophils 8.3 thou/uL (1.40-6.50); %Basophils 0.2 % (0.0-1.0); %Eosinophils 0.8 % (0.0-10.0); %Lymphocytes 18.9 % (21.0-51.0); %Monocytes 5.2 % (0.0-10.0); %Neutrophils 74.3 % (42.0-75.0); Hematocrit 31.7 % (36.0-47.0); Hemoglobin 10.4 g/dL (12.0-16.0); Mean Corpuscular HGB CONC 32.8 g/dL (32.0-36.0); Mean Corpuscular Hemoglobin 26.3 pg (27.0-31.0); Mean Corpuscular Volume 80.1 fl (78.0-98.0); Mean Platelet Volume 9.5 fL (7.4-10.4); Platelet Count 308 10x3/uL (130-400); RBC Distribution Width 16.9 % (11.5-14.5); Red Blood Cell (RBC) Count 3.96 mill/uL (4.20-5.40); White Blood Cell (WBC) Count 11.1 10x3/uL (4.8-10.8)
[2023-06-22 22:09] LABS: ALT (SGPT) 9 U/L (8-55); AST (SGOT) 9 U/L (5-34); Albumin 3.7 g/dL (3.4-4.8); Alkaline Phosphatase 49 U/L (40-110); Anion Gap 13 mmol/L (10-20); BUN (Urea Nitrogen) 20 mg/dL (9.8-20.1); Bilirubin, Total 0.5 mg/dL (0.2-1.2); Calc. Creatinine Clearance 0 mL/min (70-130); Calcium 8.8 mg/dL (7.8-10.44); Carbon Dioxide 20 mmol/L (23-31); Chloride 106 mmol/L (98-107); Estimated GFR 52; Globulin 2.8 g/dL (2.4-3.5); Glucose 128 mg/dL (83-110); Potassium 3.8 mmol/L (3.5-5.1); Protein, Total 6.5 g/dL (5.8-8.1); Sodium 135 mmol/L (136-145)
[2023-06-22 22:14] LABS: Troponin I 0.157 ng/mL (< 0.028)
[2023-06-22] MEDS ORDERED: Ondansetron ODT 4 MG TAB PO PRN (23:40)
[2023-06-22] MEDS ORDERED: Acetaminophen 650 MG Suppository PR PRN (23:40)
[2023-06-22] MEDS ORDERED: Ondansetron PF 4 MG/2 ML Vial IVP PRN (23:40)
[2023-06-22] MEDS ORDERED: Acetaminophen 325 MG TAB PO PRN (23:40)
[2023-06-23 05:05] LABS: #Monocytes 0.8 thou/uL (0.11-0.59); %Basophils 0.1 % (0.0-1.0); %Eosinophils 0.3 % (0.0-10.0); %Lymphocytes 18.7 % (21.0-51.0); %Monocytes 5.8 % (0.0-10.0); %Neutrophils 74.4 % (42.0-75.0); Hematocrit 32.4 % (36.0-47.0); Hemoglobin 10.3 g/dL (12.0-16.0); Mean Corpuscular HGB CONC 31.8 g/dL (32.0-36.0); Mean Corpuscular Volume 81.8 fl (78.0-98.0); Mean Platelet Volume 9.8 fL (7.4-10.4); Platelet Count 303 10x3/uL (130-400); RBC Distribution Width 17.2 % (11.5-14.5); Red Blood Cell (RBC) Count 3.96 mill/uL (4.20-5.40); White Blood Cell (WBC) Count 13.5 10x3/uL (4.8-10.8)
[2023-06-23 05:24] LABS: Anion Gap 12 mmol/L (10-20); BUN (Urea Nitrogen) 23 mg/dL (9.8-20.1); Calc. Creatinine Clearance 0 mL/min (70-130); Carbon Dioxide 20 mmol/L (23-31); Chloride 105 mmol/L (98-107); Estimated GFR 42; Glucose 127 mg/dL (83-110); Magnesium 2.1 mg/dL (1.6-2.6); Sodium 133 mmol/L (136-145)
[2023-06-23 06:37] VITALS: BMI 45.6
[2023-06-23] MEDS ORDERED: FLU VACC QS2023(65UP)/MF59C/PF 60 MCG/0.5 ML SYRINGE IM ONE (06:45)
[2023-06-23] MEDS ORDERED: Loratadine 10 MG TAB PO PRN (09:51)
[2023-06-23] MEDS ORDERED: Benzonatate 100 MG CAP PO SCH (10:00)
[2023-06-23] MEDS ORDERED: Non-Formulary Item 1 EACH (Hydrochlorothiazide [Hydrochlorothiazide] 12.5 MG Capsule) PO PRN (11:46)
[2023-06-23] MEDS ORDERED: Fluticasone Propionate Nasal Spray 16 gm Bottle NASAL PRN (11:46)
[2023-06-23] MEDS: Sucralfate 1 GM TAB PO SCH ×2 (20:40→20:41)
[2023-06-23] MEDS: Apixaban 5 MG TAB PO SCH (20:41)
[2023-06-23] MEDS: Benzonatate 100 MG CAP PO PRN (20:42)
[2023-06-24 05:24] LABS: #Eosinphils 0.1 thou/uL (0.0-0.7); #Monocytes 0.7 thou/uL (0.11-0.59); #Neutrophils 7.6 thou/uL (1.40-6.50); %Basophils 0.4 % (0.0-1.0); %Eosinophils 0.9 % (0.0-10.0); %Lymphocytes 24.5 % (21.0-51.0); %Monocytes 5.8 % (0.0-10.0); Hematocrit 31.8 % (36.0-47.0); Hemoglobin 9.9 g/dL (12.0-16.0); Mean Corpuscular HGB CONC 31.1 g/dL (32.0-36.0); Mean Corpuscular Hemoglobin 25.7 pg (27.0-31.0); Mean Corpuscular Volume 82.6 fl (78.0-98.0); Mean Platelet Volume 10.3 fL (7.4-10.4); Platelet Count 241 10x3/uL (130-400); RBC Distribution Width 17.4 % (11.5-14.5); Red Blood Cell (RBC) Count 3.85 mill/uL (4.20-5.40); White Blood Cell (WBC) Count 11.2 10x3/uL (4.8-10.8)
[2023-06-24 05:47] LABS: Anion Gap 13 mmol/L (10-20); BUN (Urea Nitrogen) 21 mg/dL (9.8-20.1); Calc. Creatinine Clearance 103 mL/min (70-130); Calcium 8.6 mg/dL (7.8-10.44); Carbon Dioxide 19 mmol/L (23-31); Chloride 105 mmol/L (98-107); Estimated GFR 64; Glucose 87 mg/dL (83-110); Potassium 3.4 mmol/L (3.5-5.1); Sodium 134 mmol/L (136-145)
[2023-06-24] MEDS ORDERED: Potassium Chloride 20 MEQ TAB PO SCH (07:30)
[2023-06-24] MEDS: Sucralfate 1 GM TAB PO SCH ×4 (08:12→21:03)
[2023-06-24] MEDS: Empagliflozin 10 MG TAB PO SCH (08:12)
[2023-06-24] MEDS: Apixaban 5 MG TAB PO SCH ×2 (08:12→21:03)
[2023-06-24] MEDS: Atorvastatin Calcium 10 MG TAB PO SCH (08:12)
[2023-06-24] MEDS ORDERED: Non-Formulary Item 1 EACH (Spironolactone [Spironolactone] 50 MG Tablet) PO SCH (09:00)
[2023-06-24] MEDS: Flecainide 50 MG TAB PO SCH (21:03)
[2023-06-24] MEDS: Benzonatate 100 MG CAP PO PRN (21:07)
[2023-06-25 05:12] LABS: #Eosinphils 0.1 thou/uL (0.0-0.7); #Monocytes 0.8 thou/uL (0.11-0.59); #Neutrophils 9.8 thou/uL (1.40-6.50); %Basophils 0.2 % (0.0-1.0); %Eosinophils 0.6 % (0.0-10.0); %Lymphocytes 20.8 % (21.0-51.0); Hematocrit 33.9 % (36.0-47.0); Hemoglobin 10.7 g/dL (12.0-16.0); Mean Corpuscular HGB CONC 31.6 g/dL (32.0-36.0); Mean Corpuscular Hemoglobin 25.5 pg (27.0-31.0); Mean Corpuscular Volume 80.9 fl (78.0-98.0); Mean Platelet Volume 9.5 fL (7.4-10.4); Platelet Count 291 10x3/uL (130-400); RBC Distribution Width 17.1 % (11.5-14.5); Red Blood Cell (RBC) Count 4.19 mill/uL (4.20-5.40); White Blood Cell (WBC) Count 13.6 10x3/uL (4.8-10.8)
[2023-06-25 05:44] LABS: Anion Gap 11 mmol/L (10-20); BUN (Urea Nitrogen) 16 mg/dL (9.8-20.1); Calc. Creatinine Clearance 110 mL/min (70-130); Calcium 8.8 mg/dL (7.8-10.44); Carbon Dioxide 22 mmol/L (23-31); Chloride 105 mmol/L (98-107); Estimated GFR 69; Glucose 100 mg/dL (83-110); Potassium 3.6 mmol/L (3.5-5.1); Sodium 134 mmol/L (136-145)
[2023-06-25] MEDS: Sucralfate 1 GM TAB PO SCH ×4 (07:54→20:38)
[2023-06-25] MEDS: Atorvastatin Calcium 10 MG TAB PO SCH (09:51)
[2023-06-25] MEDS: Apixaban 5 MG TAB PO SCH ×2 (09:51→20:39)
[2023-06-25] MEDS: Flecainide 50 MG TAB PO SCH ×2 (09:52→20:39)
[2023-06-25] MEDS: Empagliflozin 10 MG TAB PO SCH (09:52)
[2023-06-26] MEDS: Sucralfate 1 GM TAB PO SCH ×2 (08:50→10:43)
[2023-06-26] MEDS: Flecainide 50 MG TAB PO SCH (08:51)
[2023-06-26] MEDS: Apixaban 5 MG TAB PO SCH (08:52)
[2023-06-26] MEDS: Atorvastatin Calcium 10 MG TAB PO SCH (08:52)
[2023-06-26] MEDS: Empagliflozin 10 MG TAB PO SCH (08:53)
[2023-06-26 13:09] VITALS: BP 143/78; TEMP 98.1
== END 2023-06-26 13:45 | disposition home or self-care (01) | DRG 281 ==
LOC: ERS 20:46 → 2SE 23:40 → OBSVTOIN 06-24 13:06
PROVIDERS: ADMIT Student in an Organized Health Care Education/Training Program; ATTEND Family Medicine
DX: I48.92 Unspecified atrial flutter (principal); I21.A1 Myocardial infarction type 2; N17.9 Acute kidney failure, unspecified; Z68.42 Body mass index [BMI] 45.0-49.9, adult; I10 Essential (primary) hypertension; E78.5 Hyperlipidemia, unspecified; I25.10 Atherosclerotic heart disease of native coronary artery without angina pectoris; M19.90 Unspecified osteoarthritis, unspecified site; D64.9 Anemia, unspecified; D72.829 Elevated white blood cell count, unspecified; I48.0 Paroxysmal atrial fibrillation; K21.9 Gastro-esophageal reflux disease without esophagitis; E66.9 Obesity, unspecified; Z79.01 Long term (current) use of anticoagulants; Z88.8 Allergy status to other drugs, medicaments and biological substances; Z79.899 Other long term (current) drug therapy; Z98.890 Other specified postprocedural states
CPT/HCPCS: 36415; 71045; 80048; 80053; 83735; 83880; 84484; 85025; 93005; 93010; G0378

== ENCOUNTER 2023-12-17 12:25 | Outpatient (CLI) | payer MEDICARE | END 2023-12-17 12:26 | disposition home or self-care (01) | LOC: BICMAMMO 12:25 | PROVIDERS: ATTEND Nurse Practitioner Family | DX: Z12.31 Encounter for screening mammogram for malignant neoplasm of breast (principal); Z80.3 Family history of malignant neoplasm of breast; Z91.89 Other specified personal risk factors, not elsewhere classified | CPT/HCPCS: 77063; 77067 ==

== ENCOUNTER 2024-03-12 09:14 | Outpatient (CLI) | payer MEDICARE ==
[2024-03-12 10:43] LABS: #Basophils 0.03 10x3/uL (0.0-0.2); %Basophils 0.4 % (0.0-1.0); %Eosinophils 0.7 % (0.0-10.0); %Lymphocytes 23.7 % (21.0-51.0); %Monocytes 5.7 % (0.0-10.0); %Neutrophils 69.4 % (42.0-75.0); Hematocrit 41.2 % (36.0-47.0); Hemoglobin 12.7 g/dL (12.0-16.0); Mean Corpuscular HGB CONC 30.8 g/dL (32.0-36.0); Mean Corpuscular Hemoglobin 26.8 pg (27.0-31.0); Mean Corpuscular Volume 86.9 fL (78.0-98.0); Mean Platelet Volume 10.7 fL (7.4-10.4); Platelet Count 199 10x3/uL (130-400); RBC Distribution Width 15.6 % (11.5-14.5); Red Blood Cell (RBC) Count 4.74 mill/uL (4.20-5.40)
[2024-03-12 10:57] LABS: INR-International Normal Ratio 1.4; PTT 31.8 sec (22.9-36.1); Prothrombin Time 17.1 sec (12.0-14.7)
[2024-03-12 11:00] LABS: Anion Gap 15 mmol/L (10-20); BUN (Urea Nitrogen) 18 mg/dL (9.8-20.1); Calc. Creatinine Clearance 0 mL/min (70-130); Carbon Dioxide 23 mmol/L (23-31); Chloride 105 mmol/L (98-107); Estimated GFR 76; Glucose 94 mg/dL (83-110); Potassium 3.7 mmol/L (3.5-5.1); Sodium 139 mmol/L (136-145)
== END 2024-03-12 09:15 | disposition home or self-care (01) ==
LOC: LABBT 09:14
PROVIDERS: ATTEND Internal Medicine Cardiovascular Disease
DX: Z01.812 Encounter for preprocedural laboratory examination (principal); I48.19 Other persistent atrial fibrillation
CPT/HCPCS: 80048; 85025; 85610; 85730

== ENCOUNTER 2024-03-13 08:54 | Day surgery (SDC) | payer MEDICARE ==
[2024-03-12 09:27] VITALS: BMI 45.7
[2024-03-13] MEDS ORDERED: Heparin 10,000 UNITS/ 10 ML VIAL ONE (10:26)
[2024-03-13] MEDS ORDERED: DOPamine 400 MG/D5W 250 ML 250 ML ONE (10:26)
[2024-03-13] MEDS ORDERED: fentaNYL PF 100 MCG/2 ML SYRINGE ONE (11:32)
[2024-03-13] MEDS ORDERED: Lidocaine 1% PF 5 ML VIAL ONE (13:34)
[2024-03-13] MEDS ORDERED: Rocuronium Bromide 10 MG/ML (10ML VIAL) ONE (13:34)
[2024-03-13] MEDS ORDERED: Ondansetron PF 4 MG/2 ML Vial ONE (13:34)
[2024-03-13] MEDS ORDERED: PROPOFOL 200 MG/20 ML VIAL ONE (13:34)
[2024-03-13] MEDS ORDERED: PHENYLEPHRINE-NS 100 MCG/ML 10 ML SYRINGE ONE (13:34)
[2024-03-13] MEDS ORDERED: SUGAMMADEX SODIUM 200 MG/2 ML VIAL ONE (14:10)
[2024-03-13] MEDS ORDERED: Acetaminophen 325 MG TAB ONE (15:08)
== END 2024-03-13 17:30 | disposition home or self-care (01) ==
LOC: SDC 08:54
PROVIDERS: ATTEND Internal Medicine Cardiovascular Disease
PROC: 02583ZZ Destruction of Conduction Mechanism, Percutaneous Approach (ICD-10-PCS; principal; 2024-03-13)
DX: I48.19 Other persistent atrial fibrillation (principal); I49.5 Sick sinus syndrome; E78.5 Hyperlipidemia, unspecified; I10 Essential (primary) hypertension; E66.01 Morbid (severe) obesity due to excess calories; N32.81 Overactive bladder; Z79.01 Long term (current) use of anticoagulants; Z98.890 Other specified postprocedural states; Z87.891 Personal history of nicotine dependence; Z95.0 Presence of cardiac pacemaker; Z79.899 Other long term (current) drug therapy; Z91.048 Other nonmedicinal substance allergy status; Z68.42 Body mass index [BMI] 45.0-49.9, adult; Z86.79 Personal history of other diseases of the circulatory system
CPT/HCPCS: 71045; 93005; 93650; C1760; C2630; J1265; J1644; J2405; J2704; 93010

== ENCOUNTER 2025-06-05 07:09 | Emergency (ER) | payer MEDICARE ==
[2025-06-05] MEDS ORDERED: Albuterol 2.5 MG (0.5 mL) NEB ONE (08:43)
[2025-06-05] MEDS ORDERED: Ipratropium Bromide 2.5 ml Neb ONE (08:44)
[2025-06-05] MEDS ORDERED: Furosemide 40 MG (4 mL) VIAL ONE (08:44)
[2025-06-05 09:19] LABS: #Basophils 0.03 10x3/uL (0.0-0.2); #Eosinophils Less than 0.03 10x3/uL (0.0-0.7); #Monocytes 0.73 10x3/uL (0.11-0.59); #Neutrophils 11.98 10x3/uL (1.40-6.50); %Basophils 0.2 % (0.0-1.0); %Eosinophils 0.1 % (0.0-10.0); %Lymphocytes 13.2 % (21.0-51.0); %Monocytes 4.9 % (0.0-10.0); %Neutrophils 80.9 % (42.0-75.0); Hematocrit 34.1 % (36.0-47.0); Hemoglobin 10.6 g/dL (12.0-16.0); Mean Corpuscular Hemoglobin 26.0 pg (27.0-31.0); Mean Corpuscular Volume 83.6 fL (78.0-98.0); Platelet Count 317 10x3/uL (130-400); Red Blood Cell (RBC) Count 4.08 mill/uL (4.20-5.40); White Blood Cell (WBC) Count 14.83 10x3/uL (4.8-10.8)
[2025-06-05 09:41] LABS: ALT (SGPT) 13 U/L (Less than 34); AST (SGOT) 21 U/L (11-34); Albumin 3.5 g/dL (3.1-4.5); Alkaline Phosphatase 51 U/L (40-110); Anion Gap 17 mmol/L (10-20); BUN (Urea Nitrogen) 20 mg/dL (9.8-20.1); Bilirubin, Total 0.4 mg/dL (0.3-1.2); Calc. Creatinine Clearance 0 mL/min (70-130); Calcium 10.0 mg/dL (7.8-10.44); Carbon Dioxide 23 mmol/L (23-31); Chloride 104 mmol/L (98-107); Globulin 3.6 g/dL (2.4-3.5); Glucose 113 mg/dL (83-110); Potassium 3.8 mmol/L (3.5-5.1); Sodium 140 mmol/L (136-145)
== END 2025-06-05 17:57 | disposition home or self-care (01) ==
LOC: ERS 07:09
DX: J42 Unspecified chronic bronchitis (principal); I10 Essential (primary) hypertension; I48.91 Unspecified atrial fibrillation; Z91.148 Patient's other noncompliance with medication regimen for other reason; Z87.891 Personal history of nicotine dependence; Z95.0 Presence of cardiac pacemaker; Z79.899 Other long term (current) drug therapy; Z79.01 Long term (current) use of anticoagulants; Z79.51 Long term (current) use of inhaled steroids
CPT/HCPCS: 71045; 80053; 83605; 83880; 84484 ×2; 85025; 87040; 93005; J1940; J2919; J7644; J7611